=== PATIENT | male | born 1950 | race Caucasian/White ===

== ENCOUNTER → 2016-11-18 | Outpatient (CLI) | payer MEDICARE ==
[2016-11-18 10:15] LABS: ALT 39 U/L (21-72); AST 25 U/L (17-59); Alkaline Phosphatase 67 U/L (38-126); Anion Gap 9 mmol/L; Blood Urea Nitrogen 13 mg/dL (9-20); Calcium 9.1 mg/dL (8.4-10.2); Carbon Dioxide 30 mmol/L (22-30); Chloride 103 mmol/L (98-107); Cholesterol 167 mg/dL (<200); Glucose 107 mg/dL (74-99); HDL Cholesterol 51 mg/dL (40-60); Non-African American GFR(MDRD) >60 (>60 ml/min/1.73 sqM); Potassium 4.3 mmol/L (3.5-5.1); Sodium 142 mmol/L (137-145); Total Bilirubin 1.7 mg/dL (0.2-1.3); Triglycerides 101 mg/dL (<150)
[2016-11-18 10:16] LABS: Basophils % (A) 0 %; CHCM 33.8; Eosinophils # (A) 0.1 k/uL (0-0.7); Eosinophils % (A) 1 %; HCT 41.8 % (39.0-53.0); HDW 2.48; HGB 13.7 gm/dL (13.0-17.5); Luc # (Auto) 0.14; Luc % (Auto) 2; Lymphocytes % (A) 16 %; MCHC 32.7 g/dL (31.0-37.0); Mean Platelet Volume 6.8; Monocytes # (A) 0.3 k/uL (0-1.0); Monocytes % (A) 5 %; Neutrophils # (A) 4.8 k/uL (1.3-7.7); Neutrophils % (A) 76 %; RBC 4.14 m/uL (4.30-5.90); RDW 12.9 % (11.5-15.5); WBC 6.3 k/uL (3.8-10.6); WBC (Perox) 6.38
== END | disposition home or self-care (01) ==
LOC: LABWHC1 09:35
PROVIDERS: ATTEND Internal Medicine
DX: E78.5 Hyperlipidemia, unspecified (principal); I10 Essential (primary) hypertension
CPT/HCPCS: 36415; 80053; 80061; 84439; 84443; 85025

== ENCOUNTER → 2018-02-14 | Outpatient (CLI) | payer MEDICARE ==
[2018-02-14 07:34] LABS: Basophils % (A) 0 %; Eosinophils # (A) 0.2 k/uL (0-0.7); Eosinophils % (A) 4 %; HCT 39.6 % (39.0-53.0); HGB 13.2 gm/dL (13.0-17.5); Lymphocytes # (A) 0.9 k/uL (1.0-4.8); Lymphocytes % (A) 25 %; MCH 32.3 pg (25.0-35.0); MCHC 33.3 g/dL (31.0-37.0); Mean Platelet Volume 7.3; Monocytes # (A) 0.3 k/uL (0-1.0); Monocytes % (A) 8 %; Neutrophils # (A) 2.2 k/uL (1.3-7.7); Neutrophils % (A) 60 %; Platelet Count 172 k/uL (150-450); RBC 4.08 m/uL (4.30-5.90); RDW 12.6 % (11.5-15.5); WBC 3.6 k/uL (3.8-10.6)
[2018-02-14 08:00] LABS: ALT 25 U/L (21-72); AST 27 U/L (17-59); Albumin 3.8 g/dL (3.5-5.0); Alkaline Phosphatase 77 U/L (38-126); Anion Gap 9 mmol/L; Blood Urea Nitrogen 18 mg/dL (9-20); Calcium 8.9 mg/dL (8.4-10.2); Carbon Dioxide 24 mmol/L (22-30); Chloride 106 mmol/L (98-107); Cholesterol 153 mg/dL (<200); Glucose 99 mg/dL (74-99); HDL Cholesterol 43 mg/dL (40-60); LDL Cholesterol,Calculated 93 mg/dL (0-99); Potassium 4.2 mmol/L (3.5-5.1); Sodium 139 mmol/L (137-145); Total Bilirubin 1.5 mg/dL (0.2-1.3); Total Protein 6.4 g/dL (6.3-8.2); Triglycerides 86 mg/dL (<150)
[2018-02-14 08:14] LABS: T4, Free (Free Thyroxine) 0.73 ng/dL (0.78-2.19)
== END ==
LOC: LABWHC1 06:54
PROVIDERS: ATTEND Internal Medicine
DX: E78.5 Hyperlipidemia, unspecified (principal); I10 Essential (primary) hypertension
CPT/HCPCS: 36415; 80053; 80061; 84439; 84443; 85025

== ENCOUNTER → 2019-02-20 | Outpatient (CLI) | payer MEDICARE ==
[2019-02-20 09:52] LABS: Basophils % (A) 0 %; Eosinophils # (A) 0.1 k/uL (0-0.7); Eosinophils % (A) 3 %; HCT 45.7 % (39.0-53.0); HGB 14.8 gm/dL (13.0-17.5); Lymphocytes # (A) 0.9 k/uL (1.0-4.8); Lymphocytes % (A) 19 %; MCH 33.2 pg (25.0-35.0); MCHC 32.4 g/dL (31.0-37.0); MCV 102.4 fL (80.0-100.0); Macrocytosis Slight; Mean Platelet Volume 6.6; Monocytes # (A) 0.3 k/uL (0-1.0); Monocytes % (A) 6 %; Neutrophils # (A) 3.2 k/uL (1.3-7.7); Neutrophils % (A) 69 %; Platelet Count 181 k/uL (150-450); RBC 4.46 m/uL (4.30-5.90); RDW 12.6 % (11.5-15.5); WBC 4.6 k/uL (3.8-10.6)
[2019-02-20 19:37] LABS: Albumin 4.5 g/dL (3.80-4.90); Albumin/Globulin Ratio 2.37 (1.60-3.17); Anion Gap 6.1 mmol/L (4.00-12.00); Calcium 9.5 mg/dL (8.7-10.3); Carbon Dioxide 27.9 mmol/L (21.6-31.8); Globulin 1.9 g/dL (1.6-3.3); LDL Cholesterol,Calculated 113.6 mg/dL (0.0-131.0); Potassium 5.3 mmol/L (3.5-5.5); Total Bilirubin 1.3 mg/dL (0.3-1.2); Total Protein 6.4 g/dL (6.2-8.2); VLDL Calculation 14.4 mg/dL (5.00-40.00)
== END | disposition home or self-care (01) ==
LOC: LABWHC1 08:21
PROVIDERS: ATTEND Internal Medicine
DX: Z00.00 Encounter for general adult medical examination without abnormal findings (principal); I10 Essential (primary) hypertension; E78.5 Hyperlipidemia, unspecified
CPT/HCPCS: 36415; 80053; 80061; 84439; 84443; 85025

== ENCOUNTER → 2021-07-26 | Outpatient (CLI) | payer MEDICARE ==
[2021-07-26 16:45] LABS: Basophils # (A) 0.03 X 10*3/uL (0.00-0.10); Basophils % (A) 0.7 %; Eosinophils # (A) 0.12 X 10*3/uL (0.04-0.35); Eosinophils % (A) 2.7 %; HCT 43.2 % (39.6-50.0); HGB 14.2 g/dL (13.0-17.0); Lymphocytes # (A) 0.94 X 10*3/uL (0.90-5.00); Lymphocytes % (A) 21.4 %; MCH 32.6 pg (27.0-32.0); MCHC 32.9 g/dL (32.0-37.0); MCV 99.1 fL (80.0-97.0); Mean Platelet Volume 9.7 fL (9.5-12.2); Monocytes # (A) 0.39 X 10*3/uL (0.20-1.00); Monocytes % (A) 8.9 %; Neutrophils # (A) 2.89 X 10*3/uL (1.80-7.70); Neutrophils % (A) 65.8 %; Platelet Count 188 X 10*3/uL (140-440); RBC 4.36 X 10*6/uL (4.40-5.60); RDW 12.4 % (11.5-14.5); WBC 4.39 X 10*3/uL (4.50-10.00)
[2021-07-26 16:53] LABS: Albumin 4.3 g/dL (3.8-4.9); Albumin/Globulin Ratio 1.95 (1.60-3.17); Anion Gap 11.6 mmol/L (4.00-12.00); BUN/Creat Ratio 14.77 Ratio (12.00-20.00); Blood Urea Nitrogen 12.3 mg/dL (9.0-27.0); Calcium 9.4 mg/dL (8.7-10.3); Carbon Dioxide 27.3 mmol/L (21.6-31.8); Chol/HDL Ratio 3.73 Ratio; Globulin 2.2 g/dL (1.6-3.3); HDL Cholesterol 46.7 mg/dL (40.00-60.00); LDL Cholesterol,Calculated 103.5 mg/dL (0.0-131.0); Non-African American GFR(CKD) 87.2 (60.0-200.0); Potassium 4.5 mmol/L (3.5-5.5); Total Bilirubin 1.3 mg/dL (0.30-1.20); Total Protein 6.4 g/dL (6.2-8.2); VLDL Calculation 23.8 mg/dL (5.00-40.00)
[2021-07-28 05:10] LABS: Prostate Specific Antigen 1.5 ng/mL (0.00-6.50); T4, Free (Free Thyroxine) 0.92 ng/dL (0.800-1.800)
== END | disposition home or self-care (01) ==
LOC: LABWHC1 08:07
PROVIDERS: ATTEND Internal Medicine
DX: I10 Essential (primary) hypertension (principal); E78.5 Hyperlipidemia, unspecified; E55.9 Vitamin D deficiency, unspecified; D51.9 Vitamin B12 deficiency anemia, unspecified
CPT/HCPCS: 36415; 80053; 80061; 82306; 82607; 84153; 84439; 84443; 85025

== ENCOUNTER 2023-06-06 12:14 | Inpatient (IN) | payer MEDICARE ==
[2023-06-06] MEDS ORDERED: SODIUM CHLORIDE 0.9% 1,000 ML IV STA (12:50)
--- NOTE | 2023-06-06 12:53 | ED ---
General Adult HPI - General Chief complaint: Syncope Stated complaint: syncope Time Seen by Provider: 06/06/23 12:17 Source: patient, family, RN notes reviewed Mode of arrival: EMS Limitations: altered mental status, physical limitation - History of Present Illness Initial comments: Patient is a pleasant 73-year-old male presenting to the emergency department for possible syncopal episode. Patient is extremely poor historian and history is obtained from family. It is unclear patient has syncopal episode but he did reportedly fell down. Patient reportedly had low heart rate and low blood pressure. Patient states he feels fine and has no complaints. It is unclear whether or not patient struck his head. Family states they believe he did strik e his head. No history of atrial fibrillation. Patient does have chronic diarrhea and has been taking Imodium, approximate 6 tabs daily. - Related Data Home Medications Medication Instructions Recorded Confirmed Aspirin 81 mg PO DAILY 05/07/15 06/06/23 Donepezil [Aricept] 10 mg PO HS 05/07/15 06/06/23 Simvastatin [Zocor] 20 mg PO DAILY 05/07/15 06/06/23 Citalopram Hydrobromide [CeleXA] 40 mg PO DAILY 06/06/23 06/06/23 Cyanocobalamin (Vitamin B-12) 1,000 mcg PO DAILY 06/06/23 06/06/23 [Vitamin B-12] Levothyroxine Sodium [Synthroid] 25 mcg PO DAILY 06/06/23 06/06/23 Loperamide [Imodium] 4 mg PO QID PRN 06/06/23 06/06/23 Losartan Potassium 100 mg PO DAILY 06/06/23 06/06/23 Memantine [Namenda] 5 mg PO BID 06/06/23 06/06/23 Allergies Allergy/AdvReac Type Severity Reaction Status Date / Time No Known Allergies Allergy Verified 06/06/23 14:57 Review of Systems ROS Statement: Those systems with pertinent positive or pertinent negative responses have been documented in the HPI. ROS Other: All systems not noted in ROS Statement are negative. Constitutional: Denies: fever Eyes: Denies: eye pain ENT: Denies: ear pain Respiratory: Denies: cough Cardiovascular: Denies: chest pain Endocrine: Denies: fatigue Gastrointestinal: Reports: as per HPI, diarrhea. Denies: vomiting Musculoskeletal: Denies: back pain Past Medical History Past Medical History: Hyperlipidemia, Hypertension Additional Past Medical History / Comment(s): HX FORGETFULNESS-ON ARICEPT, RESTLESS LEG SYNDROME, HAD SLEEP STUDY RECENTLY-IN PROCESS OF GETTING C-PAP, LOOSE STOOL @ TIMES- SOMETIMES HARD TO CONTROL, ALSO HAVING SOME BELCHING, History of Any Multi-Drug Resistant Organisms: None Reported Past Surgical History: Bowel Resection, Cholecystectomy, Joint Replacement, Orthopedic Surgery Additional Past Surgical History / Comment(s): COLON RESECTION FOR ADENOMA, COLONOSCOPY, RT HIP REPLACEMENT, ARTHROSCOPIC GERMAN. KNEES, PIN IN LT SHOULDER @ AGE 16 Past Anesthesia/Blood Transfusion Reactions: No Reported Reaction Past Psychological History: No Psychological Hx Reported Smoking Status: Never smoker Past Alcohol Use History: Occasional Past Drug Use History: None Reported - Past Family History Mother Family Medical History: Cancer, Diabetes Mellitus Additional Family Medical History / Comment(s): STOMACH CA Father Family Medical History: Skin Disorder Additional Family Medical History / Comment(s): SEVERE PSORIASIS General Exam Limitations: altered mental status, physical limitation General appearance: alert, in no apparent distress Head exam: Present: atraumatic Eye exam: Present: normal appearance, PERRL Neck exam: Present: normal inspection. Absent: tenderness Respiratory exam: Present: normal lung sounds bilaterally Cardiovascular Exam: Present: bradycardia, irregular rhythm Expanded Peripheral pulses: 2+: Radial (R), Radial (L), Posterior Tibialis (R), Posterior Tibialis (L) GI/Abdominal exam: Present: soft. Absent: tenderness Extremities exam: Present: normal inspection. Absent: pedal edema, calf tenderness Neurological exam: Present: alert. Absent: motor sensory deficit Expanded Motor strength exam: RUE: 5, LUE: 5, RLE: 5, LLE: 5 Eye Response: (4) open spontaneously Motor Response: (6) obeys commands Verbal Response: (4) confused conversation Psychiatric exam: Present: flat affect Skin exam: Present: normal color Course Vital Signs 06/06/23 06/06/23 06/06/23 12:22 12:33 13:14 Temperature 97.0 F L Pulse Rate 47 L 45 L Pulse Rate [ 44 L Leadership Development Manager ] Respiratory 18 17 Rate Blood Pressure 84/48 92/56 O2 Sat by Pulse 100 100 Oximetry EKG Findings - EKG Results: EKG: interpreted by ERMD, normal axis, normal QRS, normal ST/T EKG shows: bradycardia, atrial fibrillation Medical Decision Making - Medical Decision Making Was pt. sent in by a medical professional or institution (ILENE Llanos, RETORT PRESS OPERATOR, urgent care, hospital, or skilled nursing...) When possible be specific @ -Patient was sent in by adult foster care facility Did you speak to anyone other than the patient for history (EMS, parent, family, police, friend...)? What history was obtained from this source @ - is present and provides majority of history is patient is a poor historian Did you review nursing and triage notes (agree or disagree)? Why? @ -I reviewed and agree with nursing and triage notes Were old charts reviewed (outside hosp., previous admission, EMS record, old EKG, old radiological studies, urgent care reports/EKG's, skilled nursing records)? Report findings @ -No old charts were reviewed Differential Diagnosis (chest pain, altered mental status, abdominal pain women, abdominal pain men, vaginal bleeding, weakness, fever, dyspnea, syncope, headache, dizziness, GI bleed, back pain, seizure, CVA, palpatations, mental health, musculoskeletal)? @ -Differential Syncope: Valvular disease, hypertrophic cardiomyopathy, pulmonary embolism, tamponade, tachycardia, bradycardia, AL, hypovolemia, hemorrhage, dissection, anemia, intracranial hemorrhage, seizure, hypoglycemia, carbon monoxide poisoning, this is not meant to be an all-inclusive list. EKG interpreted by me (3pts min.). @ -As above X-rays interpreted by me (1pt min.). @ -Chest x-ray shows no acute process CT interpreted by me (1pt min.). @ -Report reviewed U/S interpreted by me (1pt. min.). @ -None done What testing was considered but not performed or refused? (CT, X-rays, U/S, labs)? Why? @ -None What meds were considered but not given or refused? Why? @ -None Did you discuss the management of the patient with other professionals (professionals i.e. ILENE Llanos, RETORT PRESS OPERATOR, lab, RT, psych nurse, social science instructor, pr internship, teacher, navy senior officer, clinical case manager)? Give summary @ -Case was discussed with Dr. Sherman who will admit For hospital call. Case also discussed with Dr. Sam with cardiology, who will consult. Was smoking cessation discussed for >3mins.? @ -No Was critical care preformed (if so, how long)? @ -No Were there social determinants of health that impacted care today? How? (Homelessness, low income, unemployed, alcoholism, drug addiction, transportation, low edu. Level, literacy, decrease access to med. care, long-term, rehab)? @ -No Was there de-escalation of care discussed even if they declined (Discuss DNR or withdrawal of care, Hospice)? DNR status @ -No What co-morbidities impacted this encounter? (DM, HTN, Smoking, COPD, CAD, Cancer, CVA, ARF, Chemo, Hep., AIDS, mental health diagnosis, sleep apnea, morbid obesity)? @ -None Was patient admitted / discharged? Hospital course, mention meds given and route, prescriptions, significant lab abnormalities, going to OR and other pertinent info. @ -Patient reevaluated and resting comfortably in bed. Heart rate 55. Stable blood pressure. Patient and family updated on results and plan. Patient will be admitted with cardiac consult Undiagnosed new problem with uncertain prognosis? @ -No Drug Therapy requiring intensive monitoring for toxicity (Heparin, Nitro, Insulin, Cardizem)? @ -No Were any procedures done? @ -No Diagnosis/symptom? @ - Syncope, bradycardia, A. fib Acute, or Chronic, or Acute on Chronic? @ -Acute, acute, acute Uncomplicated (without systemic symptoms) or Complicated (systemic symptoms)? @ -default Side effects of treatment? @ -No Exacerbation, Progression, or Severe Exacerbation? @ -No Poses a threat to life or bodily function? How? (Chest pain, USA, AL, pneumonia, PE, COPD, DKA, ARF, appy, cholecystitis, CVA, Diverticulitis, Homicidal, Suicidal, threat to staff... and all critical care pts) @ -No - Lab Data Result diagrams: 06/06/23 13:17 06/06/23 13:17 Lab Results 06/06/23 06/06/23 06/06/23 Range/Units 13:17 13:17 13:17 WBC 4.8 (3.8-10.6) k/uL RBC 3.43 L (4.30-5.90) m/uL Hgb 11.8 L (13.0-17.5) gm/dL Hct 34.3 L (39.0-53.0) % MCV 100.0 (80.0-100.0) fL MCH 34.5 (25.0-35.0) pg MCHC 34.5 (31.0-37.0) g/dL RDW 12.2 (11.5-15.5) % Plt Count 128 L (150-450) k/uL MPV 7.8 Neutrophils % 65 % Lymphocytes % 24 % Monocytes % 6 % Eosinophils % 2 % Basophils % 0 % Neutrophils # 3.1 (1.3-7.7) k/uL Lymphocytes # 1.2 (1.0-4.8) k/uL Monocytes # 0.3 (0-1.0) k/uL Eosinophils # 0.1 (0-0.7) k/uL Basophils # 0.0 (0-0.2) k/uL PT 10.6 (9.0-12.0) sec INR 1.0 (<1.2) APTT 24.1 (22.0-30.0) sec Sodium 137 (137-145) mmol/L Potassium 3.7 (3.5-5.1) mmol/L Chloride 107 (98-107) mmol/L Carbon Dioxide 25 (22-30) mmol/L Anion Gap 5 mmol/L BUN 22 H (9-20) mg/dL Creatinine 0.90 (0.66-1.25) mg/dL Est GFR (CKD-EPI)AfAm >90 (>60 ml/min/1.73 sqM) Est GFR (CKD-EPI)NonAf 83 (>60 ml/min/1.73 sqM) Glucose 67 L (74-99) mg/dL Calcium 7.6 L (8.4-10.2) mg/dL Magnesium 2.1 (1.6-2.3) mg/dL Total Bilirubin 1.0 (0.2-1.3) mg/dL AST 20 (17-59) U/L ALT 17 (4-49) U/L Alkaline Phosphatase 62 (38-126) U/L Troponin I (0.000-0.034) ng/mL Total Protein 5.2 L (6.3-8.2) g/dL Albumin 3.0 L (3.5-5.0) g/dL TSH 1.520 (0.465-4.680) mIU/L Free T4 0.96 (0.78-2.19) ng/dL 06/06/23 Range/Units 13:17 WBC (3.8-10.6) k/uL RBC (4.30-5.90) m/uL Hgb (13.0-17.5) gm/dL Hct (39.0-53.0) % MCV (80.0-100.0) fL MCH (25.0-35.0) pg MCHC (31.0-37.0) g/dL RDW (11.5-15.5) % Plt Count (150-450) k/uL MPV Neutrophils % % Lymphocytes % % Monocytes % % Eosinophils % % Basophils % % Neutrophils # (1.3-7.7) k/uL Lymphocytes # (1.0-4.8) k/uL Monocytes # (0-1.0) k/uL Eosinophils # (0-0.7) k/uL Basophils # (0-0.2) k/uL PT (9.0-12.0) sec INR (<1.2) APTT (22.0-30.0) sec Sodium (137-145) mmol/L Potassium (3.5-5.1) mmol/L Chloride (98-107) mmol/L Carbon Dioxide (22-30) mmol/L Anion Gap mmol/L BUN (9-20) mg/dL Creatinine (0.66-1.25) mg/dL Est GFR (CKD-EPI)AfAm (>60 ml/min/1.73 sqM) Est GFR (CKD-EPI)NonAf (>60 ml/min/1.73 sqM) Glucose (74-99) mg/dL Calcium (8.4-10.2) mg/dL Magnesium (1.6-2.3) mg/dL Total Bilirubin (0.2-1.3) mg/dL AST (17-59) U/L ALT (4-49) U/L Alkaline Phosphatase (38-126) U/L Troponin I <0.012 (0.000-0.034) ng/mL Total Protein (6.3-8.2) g/dL Albumin (3.5-5.0) g/dL TSH (0.465-4.680) mIU/L Free T4 (0.78-2.19) ng/dL Disposition Clinical Impression: Syncope Disposition: ADMITTED IP TO THIS HOSP Is patient prescribed a controlled substance at d/c from ED?: No Referrals: None,Stated [REFERRING] - 1-2 days Time of Disposition: 15:15
[2023-06-06 13:32] LABS: Basophils % (A) 0 %; Eosinophils # (A) 0.1 k/uL (0-0.7); Eosinophils % (A) 2 %; HCT 34.3 % (39.0-53.0); HGB 11.8 gm/dL (13.0-17.5); Lymphocytes # (A) 1.2 k/uL (1.0-4.8); Lymphocytes % (A) 24 %; MCH 34.5 pg (25.0-35.0); MCHC 34.5 g/dL (31.0-37.0); Mean Platelet Volume 7.8; Monocytes # (A) 0.3 k/uL (0-1.0); Monocytes % (A) 6 %; Neutrophils # (A) 3.1 k/uL (1.3-7.7); Neutrophils % (A) 65 %; Platelet Count 128 k/uL (150-450); RBC 3.43 m/uL (4.30-5.90); RDW 12.2 % (11.5-15.5); WBC 4.8 k/uL (3.8-10.6)
[2023-06-06 13:48] LABS: Prothrombin Time 10.6 sec (9.0-12.0)
[2023-06-06 13:49] LABS: Partial Thromboplastin Time 24.1 sec (22.0-30.0)
[2023-06-06 13:50] LABS: ALT 17 U/L (4-49); AST 20 U/L (17-59); African American GFR (CKD) >90 (>60 ml/min/1.73 sqM); Alkaline Phosphatase 62 U/L (38-126); Anion Gap 5 mmol/L; Blood Urea Nitrogen 22 mg/dL (9-20); Calcium 7.6 mg/dL (8.4-10.2); Carbon Dioxide 25 mmol/L (22-30); Chloride 107 mmol/L (98-107); Glucose 67 mg/dL (74-99); Magnesium 2.1 mg/dL (1.6-2.3); Non-African American GFR(CKD) 83 (>60 ml/min/1.73 sqM); Potassium 3.7 mmol/L (3.5-5.1); Sodium 137 mmol/L (137-145); Total Protein 5.2 g/dL (6.3-8.2)
--- NOTE | 2023-06-06 14:00 | XR ---
EXAMINATION TYPE: XR chest 1V portable DATE OF EXAM: 06/06/2023 1:55 PM COMPARISON: Chest radiographs from 02/01/2011 TECHNIQUE: XR chest 1V portable Portable AP radiograph of the chest. CLINICAL INDICATION:Male, 73 years old with history of Fall; FINDINGS: Lungs/Pleura: There is no evidence of pleural effusion, focal consolidation, or pneumothorax. Pulmonary vascularity: Unremarkable. Heart/mediastinum: Cardiomediastinal silhouette is unremarkable. Atherosclerotic calcifications are seen in the aorta. Musculoskeletal: No acute osseous pathology. Bilateral shoulder arthropathy with redemonstration of s crew in the region of the left shoulder joint. Degenerative changes of the thoracic spine. IMPRESSION: No acute cardiopulmonary disease/process.
--- NOTE | 2023-06-06 14:03 | CT ---
EXAMINATION TYPE: CT brain wo con CT DLP: 1203.4 mGycm, Automated exposure control for dose reduction was used. DATE OF EXAM: 06/06/2023 1:58 PM COMPARISON: MRI brain 07/16/2012 CLINICAL INDICATION:Male, 73 years old with history of syncope, Syncope, Alzheimer's TECHNIQUE: Brain: Multiple axial CT images of the brain were obtained without IV contrast. Coronal and sagittal reformats reviewed. FINDINGS: Brain: Extra-axial spaces: No abnormal extra-axial fluid collections. Ventricular system: Within normal limits Cerebral parenchyma: Cerebral atrophy. No acute intraparenchymal hemorrhage or mass effect. The martinez -white junction is well differentiated. Scattered hypoattenuating areas are seen within the white mat ter. Cerebellum: Unremarkable. Mass effect: No evidence of midline shift. Intracranial vasculature: Atherosclerotic calcifications of the intracranial vessels. Soft tissues: Normal. Calvarium/osseous structures: No depressed skull fracture. Paranasal sinuses and mastoid air cells: Clear Visualized orbits: Orbital contents are intact. IMPRESSION: 1. No acute intracranial process. 2. Nonspecific white matter changes, likely secondary to chronic small vessel ischemic disease.
[2023-06-06 14:07] LABS: T4, Free (Free Thyroxine) 0.96 ng/dL (0.78-2.19)
[2023-06-06] MEDS ORDERED: NALOXONE 0.4 MG/ML 1 ML VIAL IV PRN (15:17)
--- NOTE | 2023-06-06 15:31 | P.HPIM ---
History of Present Illness H&P Date: 06/06/23 History of Presenting Illness: Patient is a very pleasant 73-year-old male with a past medical history of advanced Alzheimer's dementia, hypertension, hyperlipidemia, and chronic diarrhea on daily Imodium. He presented to the emergency department today status post reported concerns of syncopal episode. Patient has advanced Alzheimer's dementia and currently at baseline mentation alert to person only. Per patient's at bedside, patient was at [facility] where he attends day camp twice weekly. She reports she was notified that her started shaking/trembling and became very unsteady and fell to the ground with concerns that he hit the left side of his head followed by a loss of consciousness reportedly lasting approximately 90 seconds and EMS was called. It is unclear if patient lost consciousness prior to fall or after fall and was sent to the emergency department for evaluation. Patient's reports until being notified of her 's loss of consciousness/syncopal episode, he has been at his baseline normal with no recent illnesses or exposure to known ill contacts. She states he follows outpatient with his primary care doctor, Dr. Whitaekr and last seen him in the office yesterday for a well check visit. She reports that her does have chronic diarrhea and takes approximately 5-6 tablets of Imodium daily, but reports this has been ongoing and unchanged. She denies any episodes of hematochezia or melena. She denies any recent medication changes, history of coronary artery disease, previous syncopal episodes, history of seizures or known cardiac arrhythmias. Patient underwent full evaluation in the emergency department. Upon arrival patient was found to be hypotensive and bradycardic with blood pressure 84/48 and heart rate 44. EKG was completed showing atrial fibrillation with a slowed ventricular response at 44 bpm upon personal review and interpretation. CT brain also completed in radiology report reviewed stating nonspecific white matter changes likely secondary to chronic small vessel ischemic disease but negative for acute intracranial process. Chest x-ray completed and upon review lungs appear clear with radiology report stating negative for acute cardiopulmonary process. Labs completed and reviewed. CBC showing normocytic anemia with hemoglobin of 11.8 and thrombocytopenia with platelet count of 128. Coagulation profile normal findings. BMP showing mild prerenal azotemia with BUN of 22 and hypoglycemia with glucose of 67. Magnesium normal findings at 2.1. Corrected calcium is 8.4. Liver profile unremarkable with the exception of low protein of 5.2 and hypoalbuminemia with albumin of 3.0. TSH normal findings at 1.5-0 with free T4 of 0.96. Discussed presenting complaint, patient's history, laboratory analysis, and imaging results in detail with the ED physician. Patient admitted under our services with consultation to neurology and cardiology. Review of systems: Pertinent positives and negatives as discussed in HPI, a complete review of systems was unable to be performed secondary to advanced Alzheimer's dementia. Information obtained from ED staff and patient's at bedside. Physical exam: Vital signs reviewed and stable. General: Nontoxic, no distress and appears stated age. Derm: Skin warm and dry, normal coloration for ethnicity. Head: Atraumatic, normocephalic and symmetric. Very hard of hearing. Eyes: EOMs intact, no lid lag, and anicteric sclera Mouth: no lip lesions, mucus membranes moist Cardiovascular: Bradycardic rate, regular rhythm with systolic murmur, positive posterior tibial pulses bilaterally, and cap refill < 2 seconds. Lungs: Respirations even, regular, and unlabored on room air. Lungs CTA bilaterally, no rhonchi, no rales, no wheezing, and no accessory muscle usage. Abdominal: soft, nontender to palpation, no guarding, no appreciable organomegaly Ext: ROM intact. No gross muscle atrophy, no edema, no contractures Neuro: Speech clear, face symmetrical and CN II-XII grossly intact with no noted focal neuro deficits Psych: Alert and oriented to person only. Patient confused to place, time, and situation at baseline. Appropriate and pleasant affect. Assessment and Plan of Care: Patient is a 73-year-old male with a past medical history of advanced Alzheimer's dementia, hypertension, hyperlipidemia, and chronic diarrhea on daily Imodium. Data review: -Upon arrival patient was found to be hypotensive and bradycardic with blood pressure 84/48 and heart rate 44. -EKG was completed showing atrial fibrillation with a slowed ventricular response at 44 bpm upon personal review and interpretation. -CT brain also completed in radiology report reviewed stating nonspecific white matter changes likely secondary to chronic small vessel ischemic disease but negative for acute intracranial process. -Chest x-ray completed and upon review lungs appear clear with radiology report stating negative for acute cardiopulmonary process. -Labs completed and reviewed. CBC showing normocytic anemia with hemoglobin of 11.8 and thrombocytopenia with platelet count of 128. Coagulation profile normal findings. BMP showing mild prerenal azotemia with BUN of 22 and hypoglycemia with glucose of 67. Magnesium normal findings at 2.1. Corrected calcium is 8.4. Liver profile unremarkable with the exception of low protein of 5.2 and hypoalbuminemia with albumin of 3.0. TSH normal findings at 1.5-0 with free T4 of 0.96. -Discussed presenting complaint, patient's history, laboratory analysis, and imaging results in detail with the ED physician. -Patient admitted under our services to general medical unit with telemetry with consultation to neurology and cardiology. Syncopal episode, unclear etiology. New-onset atrial fibrillation with a slowed ventricular response Hypotension and bradycardia Hypoglycemia -[id number] score 3, HAS-BLED Score 1. -Cardiology consulted. Discussed with poolroom table attendant, will hold off on starting anticoagulation at this time due to unclear etiology of fall and concerns of possibility of patient hitting head and loss of consciousness prior to arrival. -Telemetry monitoring. -Point of care glucose checks every 4 hours with glycemic protocol in place. -Consult placed to cardiology -Consult placed to neurology -Neuro checks every 4 hours -Fall precautions -Patient to continue with cardiac medication regimen consisting of aspirin 81 mg daily, atorvastatin 10 mg daily, and losartan 100 mg daily. Advanced Alzheimer's dementia Patient to be provided with safe and supportive care with redirection and/or reorientation and assistance as needed. Fall precautions Patient to continue daily medication regimen with Celexa 40 mg daily, Aricept 10 mg nightly, and Namenda 5 mg twice daily. Hypothyroidism Patient to continue daily medication regimen with levothyroxine 25 g daily. CODE STATUS: Full code DVT prophylaxis: Lovenox Discussed with: Patient, patient's , ED physician, RN, and poolroom table attendant Anticipated discharge date: Clinical course to determine Anticipated discharge place: Home Patient was seen independently by Nurse Practitioner. This document was prepared using [employer] dictation software. Please allow for errors in camera prototyping engineer while rare they do occur. I reviewed the documentation as provided by the KAT above, who is the original author of this note. I agree with the documented assessment and plan, with the following changes: none Past Medical History Past Medical History: Hyperlipidemia, Hypertension Additional Past Medical History / Comment(s): HX FORGETFULNESS-ON ARICEPT, RESTLESS LEG SYNDROME, HAD SLEEP STUDY RECENTLY-IN PROCESS OF GETTING C-PAP, LOOSE STOOL @ TIMES- SOMETIMES HARD TO CONTROL, ALSO HAVING SOME BELCHING, History of Any Multi-Drug Resistant Organisms: None Reported Past Surgical History: Bowel Resection, Cholecystectomy, Joint Replacement, Orthopedic Surgery Additional Past Surgical History / Comment(s): COLON RESECTION FOR ADENOMA, COLONOSCOPY, RT HIP REPLACEMENT, ARTHROSCOPIC GERMAN. KNEES, PIN IN LT SHOULDER @ AGE 16 Past Anesthesia/Blood Transfusion Reactions: No Reported Reaction Past Psychological History: No Psychological Hx Reported Smoking Status: Never smoker Past Alcohol Use History: Occasional Past Drug Use History: None Reported - Past Family History Mother Family Medical History: Cancer, Diabetes Mellitus Additional Family Medical History / Comment(s): STOMACH CA Father Family Medical History: Skin Disorder Additional Family Medical History / Comment(s): SEVERE PSORIASIS Medications and Allergies Home Medications Medication Instructions Recorded Confirmed Type Aspirin 81 mg PO DAILY 05/07/15 06/06/23 History Donepezil [Aricept] 10 mg PO HS 05/07/15 06/06/23 History Simvastatin [Zocor] 20 mg PO DAILY 05/07/15 06/06/23 History Citalopram Hydrobromide [CeleXA] 40 mg PO DAILY 06/06/23 06/06/23 History Cyanocobalamin (Vitamin B-12) 1,000 mcg PO DAILY 06/06/23 06/06/23 History [Vitamin B-12] Levothyroxine Sodium [Synthroid] 25 mcg PO DAILY 06/06/23 06/06/23 History Loperamide [Imodium] 4 mg PO QID PRN 06/06/23 06/06/23 History Losartan Potassium 100 mg PO DAILY 06/06/23 06/06/23 History Memantine [Namenda] 5 mg PO BID 06/06/23 06/06/23 History Allergies Allergy/AdvReac Type Severity Reaction Status Date / Time No Known Allergies Allergy Verified 06/06/23 14:57 Physical Exam Osteopathic Statement: *. No significant issues noted on an osteopathic structural exam other than those noted in the History and Physical/Consult. Vitals: Vital Signs Temp Pulse Pulse Resp BP Pulse Ox 06/06/23 13:14 45 L 17 92/56 100 06/06/23 12:33 44 L 06/06/23 12:22 97.0 F L 47 L 18 84/48 100 Intake and Output 06/06/23 06/06/23 06/06/23 06:59 14:59 22:59 Other: Weight 81.647 kg Results CBC & Chem 7: 06/07/23 04:02 06/07/23 04:02 Labs: Abnormal Lab Results - Last 24 Hours (Table) 06/06/23 06/06/23 Range/Units 13:17 13:17 RBC 3.43 L (4.30-5.90) m/uL Hgb 11.8 L (13.0-17.5) gm/dL Hct 34.3 L (39.0-53.0) % Plt Count 128 L (150-450) k/uL BUN 22 H (9-20) mg/dL Glucose 67 L (74-99) mg/dL Calcium 7.6 L (8.4-10.2) mg/dL Total Protein 5.2 L (6.3-8.2) g/dL Albumin 3.0 L (3.5-5.0) g/dL
[2023-06-06] MEDS ORDERED: DEXTROSE 50% SYRINGE 50 ML IVP PRN ×2 (15:32)
[2023-06-06 15:44] LABS: Glucose,Whole Blood 80 mg/dL (70-110)
[2023-06-06] MEDS ORDERED: OLANZapine 7.5 MG TAB PO ONE (18:55)
[2023-06-06 19:56] LABS: Glucose,Whole Blood 129 mg/dL (70-110)
[2023-06-06] MEDS: ENOXAPARIN 40 MG/0.4 ML SYRINGE SQ SCH (19:56)
[2023-06-06] MEDS: MEMANTINE 5 MG TAB PO SCH (20:53)
[2023-06-06] MEDS: DONEPEZIL 10 MG TAB PO SCH (20:53)
[2023-06-06 23:33] LABS: Glucose,Whole Blood 98 mg/dL (70-110)
[2023-06-07 03:17] LABS: Glucose,Whole Blood 84 mg/dL (70-110)
[2023-06-07 04:49] LABS: Basophils % (A) 0 %; Eosinophils # (A) 0.1 k/uL (0-0.7); Eosinophils % (A) 3 %; HCT 36.2 % (39.0-53.0); HGB 12.5 gm/dL (13.0-17.5); Lymphocytes # (A) 1.6 k/uL (1.0-4.8); Lymphocytes % (A) 32 %; MCH 34.7 pg (25.0-35.0); MCHC 34.5 g/dL (31.0-37.0); MCV 100.6 fL (80.0-100.0); Mean Platelet Volume 7.5; Monocytes # (A) 0.3 k/uL (0-1.0); Monocytes % (A) 6 %; Neutrophils # (A) 2.9 k/uL (1.3-7.7); Neutrophils % (A) 57 %; Platelet Count 123 k/uL (150-450); RDW 12.2 % (11.5-15.5)
[2023-06-07 05:00] LABS: ALT 18 U/L (4-49); AST 26 U/L (17-59); African American GFR (CKD) >90 (>60 ml/min/1.73 sqM); Albumin 3.6 g/dL (3.5-5.0); Alkaline Phosphatase 71 U/L (38-126); Anion Gap 5 mmol/L; Blood Urea Nitrogen 19 mg/dL (9-20); Calcium 8.9 mg/dL (8.4-10.2); Carbon Dioxide 29 mmol/L (22-30); Chloride 103 mmol/L (98-107); Glucose 84 mg/dL (74-99); Non-African American GFR(CKD) 79 (>60 ml/min/1.73 sqM); Potassium 4.3 mmol/L (3.5-5.1); Sodium 137 mmol/L (137-145); Total Bilirubin 1.3 mg/dL (0.2-1.3); Total Protein 6.2 g/dL (6.3-8.2)
[2023-06-07 07:36] LABS: Glucose,Whole Blood 89 mg/dL (70-110)
[2023-06-07] MEDS ORDERED: LOSARTAN 50 MG TAB PO SCH (09:00)
--- NOTE | 2023-06-07 10:02 | P.CRDCN ---
History of Present Illness History of present illness: HISTORY OF PRESENT ILLNESS: This is a 73-year-old male with a past medical history significant for hyperlipidemia, dementia, hypertension, and hypothyroidism. Patient does not follow with a in home baby sitter. We have been asked to see the patient in consultation for atrial fibrillation and syncope. Patient examined at the bedside in the emergency room. Patient is alert and oriented to himself only. There is no family at bedside. Apparently the patient had a syncopal episode while at his adult daycare. The patient currently denies any chest pain or pressure. He denies shortness of breath. Telemetry reveals sinus rhythm with a heart rate in the 50s. EKG performed on arrival revealed atrial fibrillation with a heart rate in the 40s. Patient was also hypotensive with a blood pressure in the 90s. He has not been started on anticoagulation secondary to fall risk. * EKG reveals atrial fibrillation with slow ventricular rate * Chest xray negative for acute process * Laboratory data: WBC 5.0. Hemoglobin for 12.5. Platelet count 123. Sodium 137. Potassium 4.3. BUN 19. Creatinine 0.94. Troponin negative x 3. * Current home cardiac medications include aspirin 81 mg daily, simvastatin 20 mg daily, losartan 100 mg daily REVIEW OF SYSTEMS: At the time of my exam: CONSTITUTIONAL: Denies fever or chills. HEENT: Denies blurred vision, vision changes, or eye pain. Denies hemoptysis CARDIOVASCULAR: Denies chest pain. Denies orthopnea. Denies PND. Denies palpitations RESPIRATORY: Denies shortness of breath. GASTROINTESTINAL: Denies abdominal pain. Denies nausea or vomiting. HEMATOLOGIC: Denies bleeding disorders. GENITOURINARY: Denies any blood in urine. SKIN: Denies pruitis. Denies rash. PHYSICAL EXAM: VITAL SIGNS: Reviewed. GENERAL: Well-developed in no acute distress. HEENT: Head is normocephalic. Pupils are equal, round. Sclerae anicteric. Mucous membranes of the mouth are moist. Neck supple. No JVD or thyromegaly LUNGS: Respirations even and unlabored. Lungs essentially clear to auscultation bilaterally. HEART: Bradycardia. Regular rate and rhythm. S1 and S2 heard. ABDOMEN: Soft. Nondistended. Nontender. EXTREMITIES: Normal range of motion. No clubbing or cyanosis. Peripheral pulses intact. No lower extremity edema NEUROLOGIC: Awake and alert. Oriented x 1. ASSESSMENT: Syncope, etiology unclear New-onset paroxysmal atrial fibrillation with slow ventricular rate, currently maintaining sinus mechanism Sinus bradycardia Hyperlipidemia Hypertension Hypothyroidism Dementia PLAN: Obtain 2D echo to assess cardiac structure and function TSH checked and within normal limits No AV reji blocking agent secondary to bradycardia Patient is not a good candidate for anticoagulation secondary to dementia and fall risk Continue telemetry monitoring to assess the need for pacemaker implantation Further recommendations pending patient's course Nurse practitioner note has been reviewed by physician. Signing provider agrees with the documented findings, assessment, and plan of care. Past Medical History Past Medical History: Hyperlipidemia, Hypertension Additional Past Medical History / Comment(s): HX FORGETFULNESS-ON ARICEPT, RESTL ESS LEG SYNDROME, HAD SLEEP STUDY RECENTLY-IN PROCESS OF GETTING C-PAP, LOOSE STOOL @ TIMES- SOMETIMES HARD TO CONTROL, ALSO HAVING SOME BELCHING, History of Any Multi-Drug Resistant Organisms: None Reported Past Surgical History: Bowel Resection, Cholecystectomy, Joint Replacement, Orthopedic Surgery Additional Past Surgical History / Comment(s): COLON RESECTION FOR ADENOMA, COLONOSCOPY, RT HIP REPLACEMENT, ARTHROSCOPIC GERMAN. KNEES, PIN IN LT SHOULDER @ AGE 16 Past Anesthesia/Blood Transfusion Reactions: No Reported Reaction Past Psychological History: No Psychological Hx Reported Smoking Status: Never smoker Past Alcohol Use History: Occasional Past Drug Use History: None Reported - Past Family History Mother Family Medical History: Cancer, Diabetes Mellitus Additional Family Medical History / Comment(s): STOMACH CA Father Family Medical History: Skin Disorder Additional Family Medical History / Comment(s): SEVERE PSORIASIS Medications and Allergies Home Medications Medication Instructions Recorded Confirmed Type Aspirin 81 mg PO DAILY 05/07/15 06/06/23 History Donepezil [Aricept] 10 mg PO HS 05/07/15 06/06/23 History Simvastatin [Zocor] 20 mg PO DAILY 05/07/15 06/06/23 History Citalopram Hydrobromide [CeleXA] 40 mg PO DAILY 06/06/23 06/06/23 History Cyanocobalamin (Vitamin B-12) 1,000 mcg PO DAILY 06/06/23 06/06/23 History [Vitamin B-12] Levothyroxine Sodium [Synthroid] 25 mcg PO DAILY 06/06/23 06/06/23 History Loperamide [Imodium] 4 mg PO QID PRN 06/06/23 06/06/23 History Losartan Potassium 100 mg PO DAILY 06/06/23 06/06/23 History Memantine [Namenda] 5 mg PO BID 06/06/23 06/06/23 History Allergies Allergy/AdvReac Type Severity Reaction Status Date / Time No Known Allergies Allergy Verified 06/06/23 14:57 Physical Exam Vitals: Vital Signs Temp Pulse Pulse Resp BP BP Pulse Ox 06/07/23 07:26 97.5 F L 48 L 15 90/60 97 06/07/23 06:53 50 L 16 140/74 97 06/07/23 04:00 51 L 18 101/58 98 06/07/23 03:00 50 L 16 109/61 100 06/07/23 01:59 52 L 16 113/68 98 06/06/23 23:28 85 18 103/63 96 06/06/23 20:55 74 18 108/54 98 06/06/23 19:48 84 18 109/56 97 06/06/23 19:00 67 17 109/67 99 06/06/23 17:32 64 18 119/99 95 06/06/23 15:30 65 16 105/57 100 06/06/23 15:00 53 L 15 107/63 99 06/06/23 14:30 50 L 18 104/60 99 06/06/23 14:00 53 L 16 108/59 100 06/06/23 13:30 49 L 17 92/56 99 06/06/23 13:14 45 L 17 92/56 100 06/06/23 13:00 44 L 18 78/51 100 06/06/23 12:42 99 06/06/23 12:33 44 L 06/06/23 12:22 97.0 F L 47 L 18 84/48 100 Results 06/07/23 04:02 06/07/23 04:02 Cardiac Enzymes 06/06/23 06/06/23 06/06/23 Range/Units 13:17 13:17 16:22 AST 20 (17-59) U/L Troponin I <0.012 <0.012 (0.000-0.034) ng/mL 06/06/23 06/07/23 Range/Units 21:05 04:02 AST 26 (17-59) U/L Troponin I <0.012 (0.000-0.034) ng/mL Coagulation 06/06/23 Range/Units 13:17 PT 10.6 (9.0-12.0) sec APTT 24.1 (22.0-30.0) sec CBC 06/06/23 06/07/23 Range/Units 13:17 04:02 WBC 4.8 5.0 (3.8-10.6) k/uL RBC 3.43 L 3.60 L (4.30-5.90) m/uL Hgb 11.8 L 12.5 L (13.0-17.5) gm/dL Hct 34.3 L 36.2 L (39.0-53.0) % Plt Count 128 L 123 L (150-450) k/uL Comprehensive Metabolic Panel 06/06/23 06/07/23 Range/Units 13: 04:02 Sodium 137 137 (137-145) mmol/L Potassium 3.7 4.3 (3.5-5.1) mmol/L Chloride 107 103 (98-107) mmol/L Carbon Dioxide 25 29 (22-30) mmol/L BUN 22 H 19 (9-20) mg/dL Creatinine 0.90 0.94 (0.66-1.25) mg/dL Glucose 67 L 84 (74-99) mg/dL Calcium 7.6 L 8.9 (8.4-10.2) mg/dL AST 20 26 (17-59) U/L ALT 17 18 (4-49) U/L Alkaline Phosphatase 62 71 (38-126) U/L Total Protein 5.2 L 6.2 L (6.3-8.2) g/dL Albumin 3.0 L 3.6 (3.5-5.0) g/dL Current Medications Generic Name Dose Route Start Last Admin Trade Name Freq PRN Reason Stop Dose Admin Aspirin 81 mg 06/07/23 09:00 Aspirin 81 Mg PO DAILY [facility] Atorvastatin Calcium 10 mg 06/07/23 09:00 Atorvastatin 10 Mg Tab PO DAILY [facility] Citalopram Hydrobromide 40 mg 06/07/23 09:00 Citalopram Hydrobromide 20 Mg Tab PO DAILY [facility] Cyanocobalamin 1,000 mcg 06/07/23 09:00 Cyanocobalamin 500 Mcg Tab PO DAILY [facility] Dextrose/Water 25 ml 06/06/23 15:32 Dextrose 50% Syringe 50 Ml IVP PER PROTOCOL PRN Hypoglycemia Protocol Dextrose/Water 50 ml 06/06/23 15:32 Dextrose 50% Syringe 50 Ml IVP PER PROTOCOL PRN Hypoglycemia Protocol Donepezil HCl 10 mg 06/06/23 21:00 06/06/23 20:53 Donepezil 10 Mg Tab PO 10 mg HS JALEESA Administration Enoxaparin Sodium 40 mg 06/06/23 19:00 06/06/23 19:56 Enoxaparin 40 Mg/0.4 Ml Syringe SQ 40 mg DAILY JALEESA Administration Levothyroxine Sodium 25 mcg 06/07/23 06:30 Levothyroxine 25 [place] [address] JALEESA Memantine 5 mg 06/06/23 21:00 06/06/23 20:53 Memantine 5 Mg Tab PO 5 mg BID JALEESA Administration Naloxone HCl 0.2 mg 06/06/23 15:17 Naloxone 0.4 Mg/Ml 1 Ml Vial IV Q2M PRN Opioid Reversal 06/07/23 04:02 06/07/23 04:02
[2023-06-07] MEDS: CYANOCOBALAMIN 500 MCG TAB PO SCH (10:24)
[2023-06-07] MEDS: LEVOTHYROXINE 25 MCG TAB PO SCH (10:24)
[2023-06-07] MEDS: MEMANTINE 5 MG TAB PO SCH ×2 (10:24→18:48)
[2023-06-07] MEDS: ASPIRIN 81 MG PO SCH (10:25)
[2023-06-07] MEDS: ENOXAPARIN 40 MG/0.4 ML SYRINGE SQ SCH (10:25)
[2023-06-07] MEDS: ATORVASTATIN 10 MG TAB PO SCH (10:25)
[2023-06-07] MEDS: CITALOPRAM HYDROBROMIDE 20 MG TAB PO SCH (10:25)
[2023-06-07 10:36] LABS: Glucose,Whole Blood 94 mg/dL (70-110)
--- NOTE | 2023-06-07 11:01 | CA ---
Transthoracic Echo Report Name: Marcelo Cooney Age: 73 Gender: M : 1950 Exam Date: 06/07/2023 09:12 Exam Location: [facility] Ht (in): 70 Wt (lb): 180 Ordering Physician: Raymundo Alba Attending/Referring Phys: Breast Trimmer Vee Clayton RDCS Procedure CPT: Indications: Assessment and function of heart Cardiac Hx: Technical Quality: Very technically difficult study Contrast 1: Lumason Total Dose (mL): 3 Contrast 2: Total Dose (mL): MEASUREMENTS (Male / Female) Normal Values 2D ECHO LV Diastolic Diameter PLAX 4.8 cm 4.2 - 5.9 / 3.9 - 5.3 cm LV Systolic Diameter PLAX 3.4 cm IVS Diastolic Thickness 1.5 cm 0.6 - 1.0 / 0.6 - 0.9 cm LVPW Diastolic Thickness 1.5 cm 0.6 - 1.0 / 0.6 - 0.9 cm LV Relative Wall Thickness 0.6 RV Internal Dim ED PLAX 3.4 cm LA Systolic Diameter LX 4.0 cm 3.0 - 4.0 / 2.7 - 3.8 cm M-MODE Aortic Root Diameter MM 3.8 cm AV Cusp Separation MM 1.7 cm DOPPLER AV Peak Velocity 193.1 cm/s AV Peak Gradient 14.9 mmHg AV Mean Velocity 152.5 cm/s AV Mean Gradient 10.1 mmHg AV Velocity Time Integral 51.4 cm MV Area PHT 1.7 cm??? Mitral E Point Velocity 84.7 cm/s Mitral A Point Velocity 83.0 cm/s Mitral E to A Ratio 1.0 MV Deceleration Time 435.1 ms TR Peak Velocity 215.2 cm/s TR Peak Gradient 18.5 mmHg Right Ventricular Systolic Press 22.8 mmHg FINDINGS Left Ventricle Left ventricular ejection fraction is estimated at 50-55 %. Left ventricular cavity size normal. Moderate concentric left ventricular hypertrophy. Right Ventricle Mild right ventricular dilatation. Right ventricular systolic pressure within normal limits. Right Atrium Normal right atrial size. Left Atrium Mild left atrial dilatation. Mitral Valve Mitral valve not well visualized. No mitral regurgitation. Aortic Valve Aortic valve sclerosis. Mild aortic stenosis with a peak gradient of 15 mmHg and a mean gradient of 8 mmHg. Tricuspid Valve Tricuspid valve not well visualized. Trace to mild tricuspid regurgitation. Pulmonic Valve Pulmonic valve not well visualized. Pericardium No pericardial effusion. Aorta Mild aortic dilatation at the level of the sinotubular junction. CONCLUSIONS Taking very difficult study with very suboptimal acoustic windows despite echo contrast Left ventricular ejection fraction of about 50% Previewed by: Dr. Aroldo Rodrigues MD (Electronically Signed) Final Date: 07 June 2023 11:00
[2023-06-07 17:10] LABS: Glucose,Whole Blood 98 mg/dL (70-110)
--- NOTE | 2023-06-07 17:36 | P.PN ---
Subjective Progress Note Date: 06/07/23 Hospital Course: Patient is a very pleasant 73-year-old male with a past medical history of advanced Alzheimer's dementia, hypertension, hyperlipidemia, and chronic diarrhea on daily Imodium. He presented to the emergency department today status post reported concerns of syncopal episode. Patient has advanced Alzheimer's dementia and currently at baseline mentation alert to person only. Per patient's at bedside, patient was at [facility] where he attends day camp twice weekly. She reports she was notified that her started shaking/trembling and became very unsteady and fell to the ground with concerns that he hit the left side of his head followed by a loss of consciousness reportedly lasting approximately 90 seconds and EMS was called. It is unclear if patient lost consciousness prior to fall or after fall and was sent to the emergency department for evaluation. Patient's reports until being notified of her 's loss of consciousness/syncopal episode, he has been at his baseline normal with no recent illnesses or exposure to known ill contacts. She states he follows outpatient with his primary care doctor, Dr. Whitaker and last seen him in the office yesterday for a well check visit. She reports that her does have chronic diarrhea and takes approximately 5-6 tablets of Imodium daily, but reports this has been ongoing and unchanged. She denies any episodes of hematochezia or melena. She denies any recent medication changes, history of coronary artery disease, previous syncopal episodes, history of seizures or known cardiac arrhythmias. Patient underwent full evaluation in the emergency department. Upon arrival patient was found to be hypotensive and bradycardic with blood pressure 84/48 and heart rate 44. EKG was completed showing atrial fibrillation with a slowed ventricular response at 44 bpm upon personal review and interpretation. CT brain also completed in radiology report reviewed stating nonspecific white matter changes likely secondary to chronic small vessel ischemic disease but negative for acute intracranial process. Chest x-ray completed and upon review lungs appear clear with radiology report stating negative for acute cardiopulmonary process. Labs completed and reviewed. CBC showing normocytic anemia with hemoglobin of 11.8 and thrombocytopenia with platelet count of 128. Coagulation profile normal findings. BMP showing mild prerenal azotemia with BUN of 22 and hypoglycemia with glucose of 67. Magnesium normal findings at 2.1. Corrected calcium is 8.4. Liver profile unremarkable with the exception of low protein of 5.2 and hypoalbuminemia with albumin of 3.0. TSH normal findings at 1.5-0 with free T4 of 0.96. Patient admitted under our services with consultation to neurology and cardiology. Physical exam: Vital signs reviewed and stable. General: Nontoxic, no distress and appears stated age. Derm: Skin warm and dry, normal coloration for ethnicity. Head: Atraumatic, normocephalic and symmetric. Very hard of hearing. Eyes: EOMs intact, no lid lag, and anicteric sclera Mouth: no lip lesions, mucus membranes moist Cardiovascular: Bradycardic rate, regular rhythm with systolic murmur, positive posterior tibial pulses bilaterally, and cap refill < 2 seconds. Lungs: Respirations even, regular, and unlabored on room air. Lungs CTA bilaterally, no rhonchi, no rales, no wheezing, and no accessory muscle usage. Abdominal: soft, nontender to palpation, no guarding, no appreciable o rganomegaly Ext: ROM intact. No gross muscle atrophy, no edema, no contractures Neuro: Speech clear, face symmetrical and CN II-XII grossly intact with no noted focal neuro deficits Psych: Alert and oriented to person only. Patient confused to place, time, and situation at baseline. Appropriate and pleasant affect. Assessment and Plan of Care: Patient is a 73-year-old male with a past medical history of advanced Alzheimer's dementia, hypertension, hyperlipidemia, and chronic diarrhea on daily Imodium. Syncopal episode, unclear etiology. New-onset atrial fibrillation with a slowed ventricular response, currently maintaining sinus mechanism at bradycardic rate 40s to 50s Hypotension and bradycardia Hypoglycemia -[id number] score 3, HAS-BLED Score 1. -Hypoglycemic events appears to be isolated event. Patient has had no further episodes of documented hypoglycemia since admission. -Cardiology following. Discussed with healthcare insurance sales agent and cardiology ETHOLOGIST, will continue to hold off on starting anticoagulation at this time. Cardiology recommending continued telemetry and further evaluation for possible pacemaker placement. -Telemetry monitoring. -Since no further episodes of hypoglycemia since admission, Point of care glucose checks may be changed to every 6 hours and we will continue with glycemic protocol as needed. -Consult placed to neurology, appreciate recommendations. -Continue Neuro checks every 4 hours -Continue Fall precautions -Patient to continue with cardiac medication regimen consisting of aspirin 81 mg daily, atorvastatin 10 mg daily, and losartan 100 mg daily. Advanced Alzheimer's dementia Patient to be provided with safe and supportive care with redirection and/or reorientation and assistance as needed. Fall precautions Patient to continue daily medication regimen with Celexa 40 mg daily, Aricept 10 mg nightly, and Namenda 5 mg twice daily. Hypothyroidism Patient to continue daily medication regimen with levothyroxine 25 g daily. Data review: Morning labs reviewed. CBC showing macrocytic anemia with hemoglobin of 12.5. BMP unremarkable. Liver profile unremarkable. Vital signs reviewed. Patient again with hypotension and bradycardia this morning. Blood pressure 90/60, heart rate 48, respiratory rate 15, temp 97.5F, SpO2 of 97% on room air. CODE STATUS: Full code DVT prophylaxis: Lovenox Discussed with: Patient, patient's , RN, cardiology ETHOLOGIST and healthcare insurance sales agent Anticipated discharge date: Clinical course to determine Anticipated discharge place: Home Patient was seen independently by Nurse Practitioner. This document was prepared using [employer] dictation software. Please allow for errors in rehabilitation engineer while rare they do occur. Raymundo Alba NP rendered care for this patient independently, reviewed the findings and plan as documented in the note above. I did not physically speak with or examine the patient on this date. Objective - Vital Signs Vital signs: Vital Signs Temp 97.5 F L 06/07/23 07:26 Pulse 48 L 06/07/23 07:26 Resp 15 06/07/23 07:26 BP 90/60 06/07/23 07:26 Pulse Ox 97 06/07/23 07:26 FiO2 Intake & Output 06/06/23 06/07/23 06/07/23 18:59 06:59 18:59 Weight 81.647 kg - Labs CBC & Chem 7: 06/09/23 10:11 06/09/23 10:11 Labs: Abnormal Lab Results - Last 24 Hours (Table) 06/06/23 06/06/23 06/06/23 Range/Units 13:17 13:17 19:55 RBC 3.43 L (4.30-5.90) m/uL Hgb 11.8 L (13.0-17.5) gm/dL Hct 34.3 L (39.0-53.0) % MCV (80.0-100.0) fL Plt Count 128 L (150-450) k/uL BUN 22 H (9-20) mg/dL Glucose 67 L (74-99) mg/dL POC Glucose (mg/dL) 129 H (70-110) mg/dL Calcium 7.6 L (8.4-10.2) mg/dL Total Protein 5.2 L (6.3-8.2) g/dL Albumin 3.0 L (3.5-5.0) g/dL 06/07/23 06/07/23 Range/Units 04:02 04:02 RBC 3.60 L (4.30-5.90) m/uL Hgb 12.5 L (13.0-17.5) gm/dL Hct 36.2 L (39.0-53.0) % MCV 100.6 H (80.0-100.0) fL Plt Count 123 L (150-450) k/uL BUN (9-20) mg/dL Glucose (74-99) mg/dL POC Glucose (mg/dL) (70-110) mg/dL Calcium (8.4-10.2) mg/dL Total Protein 6.2 L (6.3-8.2) g/dL Albumin (3.5-5.0) g/dL
[2023-06-07] MEDS: DONEPEZIL 10 MG TAB PO SCH (18:47)
[2023-06-07] MEDS ORDERED: ALPRAZolam 0.5 MG TAB PO PRN (19:21)
[2023-06-07 20:03] LABS: Glucose,Whole Blood 115 mg/dL (70-110)
[2023-06-07] MEDS ORDERED: QUEtiapine 25 MG TAB PO SCH (21:00)
[2023-06-08 06:48] LABS: Glucose,Whole Blood 98 mg/dL (70-110)
[2023-06-08] MEDS: LEVOTHYROXINE 25 MCG TAB PO SCH (06:57)
[2023-06-08] MEDS: CITALOPRAM HYDROBROMIDE 20 MG TAB PO SCH (08:13)
[2023-06-08] MEDS: ASPIRIN 81 MG PO SCH (08:13)
[2023-06-08] MEDS: ATORVASTATIN 10 MG TAB PO SCH (08:13)
[2023-06-08] MEDS: ENOXAPARIN 40 MG/0.4 ML SYRINGE SQ SCH (08:13)
[2023-06-08] MEDS: CYANOCOBALAMIN 500 MCG TAB PO SCH (08:13)
[2023-06-08] MEDS: MEMANTINE 5 MG TAB PO SCH ×2 (08:13→20:14)
--- NOTE | 2023-06-08 09:32 | P.PN ---
Subjective Progress Note Date: 06/08/23 Hospital Course: Patient is a very pleasant 73-year-old male with a past medical history of advanced Alzheimer's dementia, hypertension, hyperlipidemia, and chronic diarrhea on daily Imodium. He presented to the emergency department today status post reported concerns of syncopal episode. Patient has advanced Alzheimer's dementia and currently at baseline mentation alert to person only. Per patient's at bedside, patient was at [facility] where he attends day camp twice weekly. She reports she was notified that her started shaking/trembling and became very unsteady and fell to the ground with concerns that he hit the left side of his head followed by a loss of consciousness reportedly lasting approximately 90 seconds and EMS was called. It is unclear if patient lost consciousness prior to fall or after fall and was sent to the emergency department for evaluation. Patient's reports until being notified of her 's loss of consciousness/syncopal episode, he has been at his baseline normal with no recent illnesses or exposure to known ill contacts. She states he follows outpatient with his primary care doctor, Dr. Whitaker and last seen him in the office yesterday for a well check visit. She reports that her does have chronic diarrhea and takes approximately 5-6 tablets of Imodium daily, but reports this has been ongoing and unchanged. She denies any episodes of hematochezia or melena. She denies any recent medication changes, history of coronary artery disease, previous syncopal episodes, history of seizures or known cardiac arrhythmias. Patient underwent full evaluation in the emergency department. Upon arrival patient was found to be hypotensive and bradycardic with blood pressure 84/48 and heart rate 44. EKG was completed showing atrial fibrillation with a slowed ventricular response at 44 bpm upon personal review and interpretation. CT brain also completed in radiology report reviewed stating nonspecific white matter changes likely secondary to chronic small vessel ischemic disease but negative for acute intracranial process. Chest x-ray completed and upon review lungs appear clear with radiology report stating negative for acute cardiopulmonary process. Labs completed and reviewed. CBC showing normocytic anemia with hemoglobin of 11.8 and thrombocytopenia with platelet count of 128. Coagulation profile normal findings. BMP showing mild prerenal azotemia with BUN of 22 and hypoglycemia with glucose of 67. Magnesium normal findings at 2.1. Corrected calcium is 8.4. Liver profile unremarkable with the exception of low protein of 5.2 and hypoalbuminemia with albumin of 3.0. TSH normal findings at 1.5-0 with free T4 of 0.96. Patient admitted under our services with consultation to neurology and cardiology. Physical exam: Vital signs reviewed and stable. General: Nontoxic, no distress and appears stated age. Derm: Skin warm and dry, normal coloration for ethnicity. Head: Atraumatic, normocephalic and symmetric. Very hard of hearing. Eyes: EOMs intact, no lid lag, and anicteric sclera Mouth: no lip lesions, mucus membranes moist Cardiovascular: Bradycardic rate, regular rhythm with systolic murmur, positive posterior tibial pulses bilaterally, and cap refill < 2 seconds. Lungs: Respirations even, regular, and unlabored on room air. Lungs CTA bilaterally, no rhonchi, no rales, no wheezing, and no accessory muscle usage. Abdominal: soft, nontender to palpation, no guarding, no appreciable o rganomegaly Ext: ROM intact. No gross muscle atrophy, no edema, no contractures Neuro: Speech clear, face symmetrical and CN II-XII grossly intact with no noted focal neuro deficits Psych: Alert and oriented to person only. Patient confused to place, time, and situation at baseline. Appropriate and pleasant affect. Assessment and Plan of Care: Patient is a 73-year-old male with a past medical history of advanced Alzheimer's dementia, hypertension, hyperlipidemia, and chronic diarrhea on daily Imodium. Syncopal episode, unclear etiology. New-onset atrial fibrillation with a slowed ventricular response, currently maintaining sinus mechanism at bradycardic rate 40s to 50s Hypotension and bradycardia Hypoglycemia -[id number] score 3, HAS-BLED Score 1. -Hypoglycemic event appears to be isolated event. Patient has had no further episodes of documented hypoglycemia since admission. -Cardiology following and reviewed documentation in chart and discussed plan of care with cardiology ASSEMBLER INSTALLER GENERAL. -Telemetry monitoring. -Continue point of care glucose checks every 6 hours and we will continue with glycemic protocol as needed. -Consult placed to neurology, appreciate recommendations. -Continue Neuro checks every 4 hours -Continue Fall precautions -Patient to continue with cardiac medication regimen consisting of aspirin 81 mg daily, atorvastatin 10 mg daily, and losartan 100 mg daily. Advanced Alzheimer's dementia Sundowner's with behavioral disturbances Patient to be provided with safe and supportive care with redirection and/or reorientation and assistance as needed. Patient started on Seroquel 25 mg nightly, was not effective in assisting patient with aggitation and aggressive behaviors with behavioral disturbances overnight. Will increase to 50 mg nightly tonight and continue to monitor for improvement. Fall precautions Patient to continue daily medication regimen with Celexa 40 mg daily, Aricept 10 mg nightly, and Namenda 5 mg twice daily. Hypothyroidism Patient to continue daily medication regimen with levothyroxine 25 g daily. Data review: Vital signs reviewed. Patient again with hypotension and bradycardia this morning. Blood pressure 159/71, heart rate 61, respiratory rate 20, temp 97.6F, SpO2 of 96% on room air. Morning glucose 98. Blood glucose levels ranging from 84-115 over the past 24 hours with no further episodes of hypoglycemia since admission. CODE STATUS: Full code DVT prophylaxis: Lovenox Discussed with: Patient, patient's , RN, and cardiology ASSEMBLER INSTALLER GENERAL Anticipated discharge date: Clinical course to determine Anticipated discharge place: Home Patient was seen independently by Nurse Practitioner. This document was prepared using [employer] dictation software. Please allow for errors in funeral home assistant while rare they do occur. Raymundo Alba, MARIANELA rendered care for this patient independently, reviewed the findings and plan as documented in the note above. I did not physically speak with or examine the patient on this date. Objective - Vital Signs Vital signs: Vital Signs Temp 97.9 F 06/08/23 04:00 Pulse 57 L 06/08/23 04:00 Resp 19 06/08/23 04:00 BP 110/65 06/08/23 04:00 Pulse Ox 95 06/08/23 04:00 FiO2 21 06/08/23 01:03 Intake & Output 06/07/23 06/08/23 06/08/23 18:59 06:59 18:59 Weight 81.647 kg Other: Voiding Method Diaper Diaper Incontinent Incontinent # Voids 2 # Bowel Movements 1 - Labs CBC & Chem 7: 06/09/23 10:11 06/09/23 10:11 Labs: Abnormal Lab Results - Last 24 Hours (Table) 06/07/23 Range/Units 20:02 POC Glucose (mg/dL) 115 H (70-110) mg/dL
--- NOTE | 2023-06-08 10:57 | P.CNNES ---
History of Present Illness Consult date: 06/07/23 Requesting physician: Raymundo Alba Reason for Consult: syncope vs fall with LOC after reported episode of shaking/trembling History of Present Illness: Patient is a 73-year-old male with history of advanced dementia, was brought to the hospital yesterday at 12:14 PM for syncopal spell. Patient has severe dementia, cannot provide any history. As per EMS flow sheet, when EMS arrived at [facility], the staff mentioned that patient was walking and "passed out". They stated the patient did not fall hard and landed on his right shoulder area. He did not hit his head and is not on blood thinners. Patient was unresponsive for around a minute. They got him sat in the chair and check BP which was 60/40. On EMS arrival, patient was alert and oriented to his normal per his . His skin was pink, warm and dry. Patient was in no pain. Blood pressure was rechecked was 80/50. Pulse was slow and irregular. EKG showed atrial fibrillation with slow ventricular response. Heart rate was bouncing between 40 and 80. IV was established and fluid started. His blood glucose was 100. Repeat blood pressure was 87/52. Vital signs on arrival blood pressure 84/48, pulse rate 47, temperature 97.0. Blood test shows normal WBC hemoglobin 11.8, platelets 128. PT/PTT normal, Chem-20 normal, troponin negative. TFTs normal. EKG shows atrial flutter. Computed tomography scan of the head revealed no acute intracranial process. Nonspecific white matter changes, likely secondary to chronic small vessel ischemic disease. I personally reviewed CT head, agree with the findings. The significant temporal lobe atrophy. Chest x-ray revealed no acute tapering process. Patient at present appears to be severely confused, appears to have significant aphasia, which according to the nursing report, and was told by patient's is baseline. Please refer to examination below. Cardiology has seen the patient and believe new onset paroxysmal atrial fibrillation, syncope with sinus bradycardia. 2-D echo was recommended. Patient regarding tobacco use, states "never", and regarding alcohol says "not much" Review of Systems Constitutional: Denies chills, Denies fever Eyes: denies blurred vision, denies pain Ears, nose, mouth and throat: Denies headache Cardiovascular: Denies chest pain, Denies shortness of breath Respiratory: Denies cough, Denies excessive sputum Gastrointestinal: Denies abdominal pain, Denies diarrhea, Denies nausea, Denies vomiting Musculoskeletal: Denies low back pain, Denies neck pain Integumentary: Denies pruritus, Denies rash Neurological: Reports as per HPI Psychiatric: Reports confusion, Reports irritability, Reports memory loss Endocrine: Denies fatigue, Denies weight change Past Medical History Past Medical History: Hyperlipidemia, Hypertension Additional Past Medical History / Comment(s): HX FORGETFULNESS-ON ARICEPT, RESTLESS LEG SYNDROME, HAD SLEEP STUDY RECENTLY-IN PROCESS OF GETTING C-PAP, LOOSE STOOL @ TIMES- SOMETIMES HARD TO CONTROL, ALSO HAVING SOME BELCHING, History of Any Multi-Drug Resistant Organisms: None Reported Past Surgical History: Bowel Resection, Cholecystectomy, Joint Replacement, Orthopedic Surgery Additional Past Surgical History / Comment(s): COLON RESECTION FOR ADENOMA, COLONOSCOPY, RT HIP REPLACEMENT, ARTHROSCOPIC GERMAN. KNEES, PIN IN LT SHOULDER @ AGE 16 Past Anesthesia/Blood Transfusion Reactions: No Reported Reaction Past Psychological History: No Psychological Hx Reported Smoking Status: Never smoker Past Alcohol Use History: None Reported, Occasional Past Drug Use History: None Reported - Past Family History Mother Family Medical History: Cancer, Diabetes Mellitus Additional Family Medical History / Comment(s): STOMACH CA Father Family Medical History: Skin Disorder Additional Family Medical History / Comment(s): SEVERE PSORIASIS Medications and Allergies Home Medications Medication Instructions Recorded Confirmed Type Aspirin 81 mg PO DAILY 05/07/15 06/06/23 History Donepezil [Aricept] 10 mg PO HS 05/07/15 06/06/23 History Simvastatin [Zocor] 20 mg PO DAILY 05/07/15 06/06/23 History Citalopram Hydrobromide [CeleXA] 40 mg PO DAILY 06/06/23 06/06/23 History Cyanocobalamin (Vitamin B-12) 1,000 mcg PO DAILY 06/06/23 06/06/23 History [Vitamin B-12] Levothyroxine Sodium [Synthroid] 25 mcg PO DAILY 06/06/23 06/06/23 History Loperamide [Imodium] 4 mg PO QID PRN 06/06/23 06/06/23 History Losartan Potassium 100 mg PO DAILY 06/06/23 06/06/23 History Memantine [Namenda] 5 mg PO BID 06/06/23 06/06/23 History Allergies Allergy/AdvReac Type Severity Reaction Status Date / Time No Known Allergies Allergy Verified 06/06/23 14:57 Physical Examination - Vital Signs Vital Signs: Vital Signs Temp Pulse Pulse Resp BP BP Pulse Ox 06/07/23 18:50 57 L 16 130/72 97 06/07/23 16:00 67 16 117/67 98 06/07/23 12:40 58 L 16 100/46 98 06/07/23 07:26 97.5 F L 48 L 15 90/60 97 06/07/23 06:53 50 L 16 140/74 97 06/07/23 04:00 51 L 18 101/58 98 06/07/23 03:00 50 L 16 109/61 100 06/07/23 01:59 52 L 16 113/68 98 06/06/23 23:28 85 18 103/63 96 06/06/23 20:55 74 18 108/54 98 06/06/23 19:48 84 18 109/56 97 Intake and Output 06/07/23 06/07/23 06/07/23 06:59 14:59 22:59 Other: Voiding Method Diaper Incontinent Weight 81.647 kg Patient is an elderly male, very pleasantly confused. Patient is alert awake, oriented 0. Patient only knows his name, but could not tell me his age. He could not tell the current month, year. Patient not able to name any object. Cannot repeat. Patient has severe expressive and receptive aphasia. This is related to his pre-existing dementia as per patient's report to the nurses. Attention, concentration and fund of knowledge is very severely limited. Patient has very strongly positive visuospatial apraxia, palmomental reflex and snout reflex. On cranial nerve examination, pupils are equal, round and reacting to light, v isual pantoja were difficult to test, but patient does blink to visual threat bilaterally. Extraocular muscles are intact with no nystagmus. Face is symmetric, tongue protrudes to the midline. Palatal elevation and sensation normal, hearing appears normal, although difficult to assess and shoulder shrug normal, facial sensation cannot be assessed. On muscle strength testing, there is no pronator drift and the strength is normal in arms and legs distally and proximally. Deep tendon reflexes are symmetric 1+ in the upper limbs, lower limbs and plantars are flat. Sensory to touch cannot be assessed. Cerebellar function showed no ataxia for [id number] testing. No dysdiadochokinesia. Tone and bulk of muscles normal. Gait deferred.. On general examination, there is no carotid bruit or murmur, S1-S2 audible. Chest is clear on consultation. Abdomen is soft nontender. No organomegaly, bowel sounds present. Peripheral pulses are present. No edema. Results - Laboratory Findings CBC and BMP: 06/07/23 04:02 06/07/23 04:02 Abnormal Lab Findings: Abnormal Labs 06/06/23 06/06/23 06/06/23 13:17 13:17 19:55 RBC 3.43 L Hgb 11.8 L Hct 34.3 L MCV Plt Count 128 L BUN 22 H Glucose 67 L POC Glucose (mg/dL) 129 H Calcium 7.6 L Total Protein 5.2 L Albumin 3.0 L 06/07/23 06/07/23 04:02 04:02 RBC 3.60 L Hgb 12.5 L Hct 36.2 L MCV 100.6 H Plt Count 123 L BUN Glucose POC Glucose (mg/dL) Calcium Total Protein 6.2 L Albumin Assessment and Plan Assessment: * Syncopal spell, most likely due to combination of arrhythmia, bradycardia and hypotension. * New onset atrial fibrillation * Hypotension. Patient's blood pressure at the scene was 60/40, which went up to 80/50 and remained like this until after patient arrived to the ER. * Advanced dementia with aphasia * Hypertension * Hyperlipidemia Plan: * Patient's syncopal spell was likely related to arrhythmia/hypotension. Cardiology on board. * Neurologically no other workup indicated regarding syncopal spell. * Patient has advanced dementia. Patient appears to be severely aphasic. As per nursing report, this is patient's baseline, not acute change. * I tried to call patient's , but the cell phone number listed was not correct, and cannot leave message on land line (voice messages full). * Continue Aricept 10 mg, Namenda 5 mg twice a day. * Patient currently on vitamin B12 1000 g orally daily, therefore no need to check the level. Last B12 was 260. * Hemoglobin A1c 5.5. * We will follow. Thank you for the consult.
[2023-06-08 11:41] LABS: Glucose,Whole Blood 104 mg/dL (70-110)
--- NOTE | 2023-06-08 13:21 | P.PN ---
Subjective HISTORY OF PRESENT ILLNESS: This is a 73-year-old male with a past medical history significant for hyperlipidemia, dementia, hypertension, and hypothyroidism. Patient does not follow with a railroad auditor. We have been asked to see the patient in consultation for atrial fibrillation and syncope. [facility] in [facility] room. Patient is alert and oriented to himself only. There is no family at bedside. Apparently the patient had a syncopal episode while at his adult daycare. The patient currently denies any chest pain or pressure. He denies shortness of breath. Telemetry reveals sinus rhythm with a heart rate in the 50s. EKG performed on arrival revealed atrial fibrillation with a heart rate in the 40s. Patient was also hypotensive with a blood pressure in the 90s. He has not been started on anticoagulation secondary to fall risk. * EKG reveals atrial fibrillation with slow ventricular rate * Chest xray negative for acute process * Laboratory data: WBC 5.0. Hemoglobin for 12.5. Platelet count 123. Sodium 137. Potassium 4.3. BUN 19. Creatinine 0.94. Troponin negative x 3. * Current home cardiac medications include aspirin 81 mg daily, simvastatin 20 mg daily, losartan 100 mg daily 06/08/2023 Patient examined this morning at the bedside. Patient denies chest pain or pressure. Denies SOB. Patient currently not on telemetry monitoring at the time of examination. Vital signs are stable. Heart rate in the 50-60s. Echocardiogram completed revealing ejection fraction 50-55%, moderate LVH, mild aortic stenosis, trace to mild tricuspid regurgitation. PHYSICAL EXAM: VITAL SIGNS: Reviewed. GENERAL: Well-developed in no acute distress. HEENT: Head is normocephalic. Pupils are equal, round. Sclerae anicteric. Mucous membranes of the mouth are moist. Neck supple. No JVD or thyromegaly LUNGS: Respirations even and unlabored. Lungs essentially clear to auscultation bilaterally. HEART: Bradycardia. Regular rate and rhythm. S1 and S2 heard. ABDOMEN: Soft. Nondistended. Nontender. EXTREMITIES: Normal range of motion. No clubbing or cyanosis. Peripheral pulses intact. No lower extremity edema NEUROLOGIC: Awake and alert. Oriented x 1. ASSESSMENT: Syncope, etiology unclear New-onset paroxysmal atrial fibrillation with slow ventricular rate, currently maintaining sinus mechanism Sinus bradycardia Hyperlipidemia Hypertension Hypothyroidism Dementia PLAN: No AV reji blocking agent secondary to bradycardia Patient is not a good candidate for anticoagulation secondary to dementia and fall risk. This was discussed with patients family today at the bedside who are in agreement. Resume telemetry monitoring to assess the need for pacemaker implantation Patient to be ambulating today with telemetry on to assess for chronotropic incompetence Patient to receive event monitor from [facility] at discharge Further recommendations pending patient's course Nurse practitioner note has been reviewed by physician. Signing provider agrees with the documented findings, assessment, and plan of care. Objective - Vital Signs Vital signs: Vital Signs Temp 98.4 F 06/08/23 11:42 Pulse 85 06/08/23 11:42 Resp 20 06/08/23 11:42 BP 118/68 06/08/23 11:42 Pulse Ox 93 L 06/08/23 11:42 FiO2 21 06/08/23 01:03 Intake & Output 06/07/23 06/08/23 06/08/23 18:59 06:59 18:59 Weight 81.647 kg Other: Voiding Method Diaper Diaper Diaper Incontinent Incontinent Incontinent # Voids 2 # Bowel Movements 1 - Labs CBC & Chem 7: 06/07/23 04:02 06/07/23 04:02 Labs: Abnormal Lab Results - Last 24 Hours (Table) 06/07/23 Range/Units 20:02 POC Glucose (mg/dL) 115 H (70-110) mg/dL
[2023-06-08 16:31] LABS: Glucose,Whole Blood 90 mg/dL (70-110)
[2023-06-08 20:08] LABS: Glucose,Whole Blood 108 mg/dL (70-110)
[2023-06-08] MEDS: DONEPEZIL 10 MG TAB PO SCH (20:14)
[2023-06-08] MEDS ORDERED: QUEtiapine 50 MG TAB PO SCH (21:00)
[2023-06-08 22:41] VITALS: RESP 16; TEMP 97.8
[2023-06-09 01:00] VITALS: BP 127/77; PULSE 65
[2023-06-09 02:42] LABS: Glucose,Whole Blood 100 mg/dL (70-110)
[2023-06-09 06:08] LABS: Glucose,Whole Blood 97 mg/dL (70-110)
[2023-06-09] MEDS ORDERED: LEVOTHYROXINE 25 MCG TAB ONE (06:30)
--- NOTE | 2023-06-09 10:09 | P.PN ---
Subjective Progress Note Date: 06/08/23 Patient was seen for a follow-up. Patient continues to be extremely confused, pacing around. Patient does not follow directions, and wants to wander around. Vertebral nursing staff and aids trying to control him. Patient become slightly loud at times. Objective - Vital Signs Vital signs: Vital Signs Temp 98.4 F 06/08/23 16:50 Pulse 62 06/08/23 16:50 Resp 20 06/08/23 16:50 BP 141/60 06/08/23 16:50 Pulse Ox 100 06/08/23 16:50 FiO2 21 06/08/23 01:03 Intake & Output 06/08/23 06/08/23 06/09/23 06:59 18:59 06:59 Intake Total 780 Balance 780 Intake: Oral 780 Other: Voiding Method Diaper Diaper Incontinent Incontinent # Voids 2 2 # Bowel Movements 1 - Exam Patient has severe aphasia, severe dementia. Muscle strength otherwise normal. - Labs CBC & Chem 7: 06/07/23 04:02 06/07/23 04:02 Labs: Abnormal Lab Results - Last 24 Hours (Table) 06/07/23 Range/Units 20:02 POC Glucose (mg/dL) 115 H (70-110) mg/dL Assessment and Plan Assessment: * Syncopal spell, most likely due to combination of arrhythmia, bradycardia and hypotension. * New onset atrial fibrillation * Hypotension. Patient's blood pressure at the scene was 60/40, which went up to 80/50 and remained like this until after patient arrived to the ER. * Advanced dementia with aphasia * Dementia with behavioral disturbance * Hypertension * Hyperlipidemia Plan: * Patient's syncopal spell was likely related to arrhythmia/hypotension. Cardiology on board. * Neurologically no other workup indicated regarding syncopal spell. * Patient has advanced dementia. Patient appears to be severely aphasic. As per nursing report, this is patient's baseline, not acute change. * Consult psychiatry for behavioral disturbance related to dementia. * Continue Aricept 10 mg, we will increase Namenda to 10 mg twice a day. * Patient currently on vitamin B12 1000 g orally daily, therefore no need to check the level. Last B12 was 260. * Hemoglobin A1c 5.5. * Neurologically no other workup indicated. Neurologically clear.
[2023-06-09 10:38] LABS: HCT 36.4 % (39.0-53.0); HGB 12.6 gm/dL (13.0-17.5); MCH 34.3 pg (25.0-35.0); MCHC 34.7 g/dL (31.0-37.0); MCV 98.9 fL (80.0-100.0); Mean Platelet Volume 7.3; Platelet Count 135 k/uL (150-450); RBC 3.68 m/uL (4.30-5.90); RDW 12.2 % (11.5-15.5); WBC 4.8 k/uL (3.8-10.6)
[2023-06-09 10:43] LABS: ALT 19 U/L (4-49); AST 25 U/L (17-59); African American GFR (CKD) >90 (>60 ml/min/1.73 sqM); Albumin 3.7 g/dL (3.5-5.0); Alkaline Phosphatase 69 U/L (38-126); Anion Gap 2 mmol/L; Blood Urea Nitrogen 13 mg/dL (9-20); Calcium 8.8 mg/dL (8.4-10.2); Carbon Dioxide 29 mmol/L (22-30); Chloride 105 mmol/L (98-107); Glucose 92 mg/dL (74-99); Magnesium 2.3 mg/dL (1.6-2.3); Non-African American GFR(CKD) >90 (>60 ml/min/1.73 sqM); Potassium 4.1 mmol/L (3.5-5.1); Sodium 136 mmol/L (137-145); Total Bilirubin 1.7 mg/dL (0.2-1.3); Total Protein 6.2 g/dL (6.3-8.2)
--- NOTE | 2023-06-09 10:52 | P.DS ---
Providers Date of admission: 06/06/23 15:18 Expected date of discharge: 06/09/23 Attending physician: Christopher Talamantes MD Consults: 06/06/23 15:17 Consult Physician Urgent Consulting Provider: Errol Thomas Consult Reason/Comments: Syncope with new-onset A. fib and bradycardia Do you want consulting provider notified?: Already Contacted 06/06/23 16:20 Consult Physician Routine Consulting Provider: Rajat Farnsworth Consult Reason/Comments: syncope vs fall with LOC after reported episode of shaking/trembling Do you want consulting provider notified?: Yes 06/09/23 01:01 Consult Physician Urgent Consulting Provider: Werner Nichols Consult Reason/Comments: Dementia with significant behavioural disturbance Do you want consulting provider notified?: Yes Primary care physician: Fransisco Shane [facility] Course: Discharge Diagnosis: Syncopal episode, unclear etiology. Patient evaluated by cardiology and neurology. Syncopal episode believed to be secondary to hypotension and bradycardia. Neurology clearing patient from a neurological perspective stating no further inpatient workup indicated. Cardiology discontinue losartan and recommending patient follow-up in our office immediately at discharge for placement on event monitor for further workup for evaluation of possible need f or pacemaker. New-onset atrial fibrillation with a slowed ventricular response, currently maintaining sinus mechanism at bradycardic rate 40s to 50s Hypotension and bradycardia. Losartan discontinued. Patient to follow up outpatient with cardiology office at discharge to be placed on event monitor. Hypoglycemia, isolated episode upon arrival. Patient had no further episodes of hypoglycemia since admission. Advanced Alzheimer's dementia with Sundowner's with behavioral disturbances. Patient was started on Seroquel during hospitalization, however per nursing staff this setting up a side effect on patient and he became more confused and agitated. Therefore will not be continuing upon discharge. Patient to continue daily medication regimen with Celexa 40 mg daily, Aricept 10 mg nightly, and Namenda 5 mg twice daily. Hypothyroidism. Patient to continue daily medication regimen with levothyroxine 25 g daily. Hospital Course: Patient is a very pleasant 73-year-old male with a past medical history of advanced Alzheimer's dementia, hypertension, hyperlipidemia, and chronic diarrhea on daily Imodium. He presented to the emergency department today status post reported concerns of syncopal episode. Patient has advanced Alzheimer's dementia and currently at baseline mentation alert to person only. Per patient's at bedside, patient was at [facility] where he attends day camp twice weekly. She reports she was notified that her started shaking/trembling and became very unsteady and fell to the ground with concerns that he hit the left side of his head followed by a loss of consciousness reportedly lasting approximately 90 seconds and EMS was called. It is unclear if patient lost consciousness prior to fall or after fall and was sent to the emergency department for evaluation. Patient's reports until being notified of her 's loss of consciousness/syncopal episode, he has been at his baseline normal with no recent illnesses or exposure to known ill contacts. She states he follows outpatient with his primary care doctor, Dr. Whitaker and last seen him in the office yesterday for a well check visit. She reports that her does have chronic diarrhea and takes approximately 5-6 tablets of Imodium daily, but reports this has been ongoing and unchanged. She denies any episodes of hematochezia or melena. She denies any recent medication changes, history of coronary artery disease, previous syncopal episodes, history of seizures or known cardiac arrhythmias. Patient underwent full evaluation in the emergency department. Upon arrival patient was found to be hypotensive and bradycardic with blood pressure 84/48 and heart rate 44. EKG was completed showing atrial fibrillation with a slowed ventricular response at 44 bpm upon personal review and interpretation. CT brain also completed in radiology report reviewed stating nonspecific white matter changes likely secondary to chronic small vessel ischemic disease but negative for acute intracranial process. Chest x-ray completed and upon review lungs appear clear with radiology report stating negative for acute cardiopulmonary process. Labs completed and reviewed. CBC showing normocytic anemia with hemoglobin of 11.8 and thrombocytopenia with platelet count of 128. Coagulation profile normal findings. BMP showing mild prerenal azotemia with BUN of 22 and hypoglycemia with glucose of 67. Magnesium normal findings at 2.1. Corrected calcium is 8.4. Liver profile unremarkable with the exception of low protein of 5.2 and hypoalbuminemia with albumin of 3.0. TSH normal findings at 1.5-0 with free T4 of 0.96. Patient admitted under our services with consultation to neurology and cardiology. Patient evaluated by cardiology and neurology. Syncopal episode believed to be secondary to hypotension and bradycardia. Neurology clearing patient from a neurological perspective stating no further inpatient workup indicated. Cardiology discontinue losartan and recommending patient follow-up in our office immediately at discharge for placement on event monitor for further workup for evaluation of possible need for pacemaker. Medically, patient stable at this time showing no signs of acute distress. Patient's at bedside and discussed discharge plans. Vital signs stable with blood pressure 127/77, heart rate 65, respiratory rate 16, temp 97.8F, SpO2 of 97% on room air. Patient discharged to cardiology office for event monitor and then EMS to take patient to [facility] for admission. Physical exam: Vital signs reviewed and stable. General: Nontoxic, no distress and appears stated age. Derm: Skin warm and dry, normal coloration for ethnicity. Head: Atraumatic, normocephalic and symmetric. Very hard of hearing. Eyes: EOMs intact, no lid lag, and anicteric sclera Mouth: no lip lesions, mucus membranes moist Cardiovascular: Bradycardic rate, regular rhythm with systolic murmur, positive posterior tibial pulses bilaterally, and cap refill < 2 seconds. Lungs: Respirations even, regular, and unlabored on room air. Lungs CTA bilatera lly, no rhonchi, no rales, no wheezing, and no accessory muscle usage. Abdominal: soft, nontender to palpation, no guarding, no appreciable organomegaly Ext: ROM intact. No gross muscle atrophy, no edema, no contractures Neuro: Speech clear, face symmetrical and CN II-XII grossly intact with no noted focal neuro deficits Psych: Alert and oriented to person only. Patient confused to place, time, and situation at baseline. Appropriate and pleasant affect. A total of 38 minutes of time were spent preparing this complex discharge summary. Pt was discharged on 06/09/23 at 10:50 AM Patient was seen independently by Nurse Practitioner. This document was prepared using [employer] dictation software. Please allow for errors in plasterer foreman while rare they do occur. Raymundo Alba NP rendered care for this patient independently, reviewed the findings and plan as documented in the note above. I did not physically speak with or examine the patient on this date. Patient Condition at Discharge: Stable Plan - Discharge Summary Discharge Rx Participant: No New Discharge Prescriptions: Continue Simvastatin [Zocor] 20 mg PO DAILY Donepezil [Aricept] 10 mg PO HS Aspirin 81 mg PO DAILY Memantine [Namenda] 5 mg PO BID Levothyroxine Sodium [Synthroid] 25 mcg PO DAILY Citalopram Hydrobromide [CeleXA] 40 mg PO DAILY Cyanocobalamin (Vitamin B-12) [Vitamin B-12] 1,000 mcg PO DAILY Discontinued Losartan Potassium 100 mg PO DAILY Loperamide [Imodium] 4 mg PO QID PRN PRN Reason: Diarrhea Discharge Medication List Aspirin 81 mg PO DAILY 05/07/15 [History] Donepezil [Aricept] 10 mg PO HS 05/07/15 [History] Simvastatin [Zocor] 20 mg PO DAILY 05/07/15 [History] Citalopram Hydrobromide [CeleXA] 40 mg PO DAILY 06/06/23 [History] Cyanocobalamin (Vitamin B-12) [Vitamin B-12] 1,000 mcg PO DAILY 06/06/23 [Histo ry] Levothyroxine Sodium [Synthroid] 25 mcg PO DAILY 06/06/23 [History] Memantine [Namenda] 5 mg PO BID 06/06/23 [History] Follow up Appointment(s)/Referral(s): Fransisco Shane MD [Primary Care Provider] - 1-2 Days Errol Thomas MD [Medical Doctor] - 1 Week Patient Instructions/Handouts: Syncope (DC), Bradycardia (DC) Activity/Diet/Wound Care/Special Instructions: PATIENT TO RECEIVE EVENT MONITOR FROM [facility] AFTER DISCHARGE. PATIENT TO [facility] AT THE OFFICE AFTER DISCHARGE Discharge Disposition: TRANSFER TO SNF/ECF
[2023-06-09 11:34] LABS: Glucose,Whole Blood 92 mg/dL (70-110)
--- NOTE | 2023-06-09 13:48 | P.CN ---
Psychiatric Consult - . Consult date: 06/09/23 Consult:: 06/09/23 13:47 IDENTIFYING DATA: This patient is a 73-year-old male with significant history of dementia who presented to the emergency department with concerns for a syncopal episode. HISTORY OF PRESENT ILLNESS: The patient presented to the hospital on 06/06/2023, brought into the emergency department after concerns of a syncopal episode. As per chart review, the patient is currently attends adult daycare where he attends [employer] twice weekly. The patient began trembling and shaking and became very unsteady with his feet and fell to the ground and hit his head. This is followed by loss of consciousness lasting for approximately 90 seconds. The patient was brought to the emergency department and was admitted medically for evaluation of his syncopal episode. EKG was completed showing atrial fibrillation with a slowed ventricular response at 44 bpm upon personal review and interpretation. CT brain also completed in radiology report reviewed stating nonspecific white matter changes likely secondary to chronic small vessel ischemic disease but negative for acute intracranial process. Chest x- ray completed and upon review lungs appear clear with radiology report stating negative for acute cardiopulmonary process. Neurology has been following the patient and during his examination on 06/08/2023, the patient was noted to be very confused, pacing around, and at times appeared to be agitated. Psychiatry was consulted for management of dementia with behavioral disturbance. Upon evaluation by the psychiatrist, the patient is currently calmly sleeping. He is arousable. However consistent with previously documented evaluations, he appears to be aphasic. He does not respond to any questioning. He is currently on a regimen of Aricept, Namenda, Celexa, and Seroquel. PAST PSYCHIATRIC HISTORY: Patient has a history of dementia. Patient is currently on a regimen of Celexa, Aricept, Namenda, and Seroquel. Seroquel was started here in this hospital. No reported history of previous psychiatric admissions as per chart review. PAST MEDICAL HISTORY: Past Medical History: Hyperlipidemia, Hypertension Additional Past Medical History / Comment(s): HX FORGETFULNESS-ON ARICEPT, RESTLESS LEG SYNDROME, HAD SLEEP STUDY RECENTLY-IN PROCESS OF GETTING C-PAP, LOOSE STOOL @ TIMES- SOMETIMES HARD TO CONTROL, ALSO HAVING SOME BELCHING, History of Any Multi-Drug Resistant Organisms: None Reported Past Surgical History: Bowel Resection, Cholecystectomy, Joint Replacement, Orth opedic Surgery Additional Past Surgical History / Comment(s): COLON RESECTION FOR ADENOMA, COLONOSCOPY, RT HIP REPLACEMENT, ARTHROSCOPIC GERMAN. KNEES, PIN IN LT SHOULDER @ AGE 16 Past Anesthesia/Blood Transfusion Reactions: No Reported Reaction Past Psychological History: No Psychological Hx Reported ALLERGIES: Allergies Allergy/AdvReac Type Severity Reaction Status Date / Time No Known Allergies Allergy Verified 06/06/23 14:57 CHEMICAL DEPENDENCY HISTORY: Smoking Status: Never smoker Past Alcohol Use History: Occasional Past Drug Use History: None Reported FAMILY PSYCHIATRIC/SUBSTANCE USE HISTORY: Unable to assess SOCIAL HISTORY: Patient is , retired, and attends adult daycare twice a week. MENTAL STATUS EXAM: General Appearance: Patient appears to be stated age is alert, pleasant, and cooperative. Patient appears to have fair hygiene and grooming wearing hospital gown with fair eye contact. Behavior: Patient is calmly lying in bed without any agitated behavior. Speech: Patient is nonverbal. Mood/Affect: Could not assess patient mood. Affect appears to be flat. Suicidality/Homicidality: Could not assess Perceptions: Could not assess Though content/process: Could not assess Memory and concentration: Could not assess. Grossly poor Judgment and insight: poor IMPRESSIONS: Syncopal episode Alzheimer's dementia with behavioral disturbances PLAN: -At this time patient DOES NOT meet criteria for inpatient psychiatric admission. The patient appears to have a safe and supportive care with redirection and/or reorientation and assistance as needed. -Agree with plan to use Seroquel in order to address dementia with behavioral disturbances -Would recommend the following medication changes/additions: As the patient is elderly, there is concern for cardiac arrhythmias with Celexa. The patient did have new onset atrial fibrillation with a slowed ventricular response. Recommending to decrease Celexa to 20 mg as per guidelines. -Continue 1:1 sitter for safety -Recommend outpatient follow-up -Psychiatry will sign off at this point, please contact with any questions. Vital Signs Temp 97.8 F 06/08/23 20:00 Pulse 65 06/09/23 00:00 Resp 16 06/09/23 00:00 BP 127/77 06/09/23 00:00 Pulse Ox 97 06/09/23 00:00 FiO2 21 06/08/23 01:03 Intake & Output 08/24/23 08/25/23 08/25/23 18:59 06:59 18:59 Intake Total 780 540 240 Balance 780 540 240 Intake: Oral 780 540 240 Other: Voiding Method Diaper Diaper Diaper Incontinent Incontinent Incontinent # Voids 2 2 Laboratory Results WBC 4.8 k/uL (3.8-10.6) 06/09/23 10:11 RBC 3.68 m/uL (4.30-5.90) L 06/09/23 10:11 Hgb 12.6 gm/dL (13.0-17.5) L 06/09/23 10:11 Hct 36.4 % (39.0-53.0) L 06/09/23 10:11 MCV 98.9 fL (80.0-100.0) 06/09/23 10:11 MCH 34.3 pg (25.0-35.0) 06/09/23 10:11 MCHC 34.7 g/dL (31.0-37.0) 06/09/23 10:11 RDW 12.2 % (11.5-15.5) 06/09/23 10:11 Plt Count 135 k/uL (150-450) L 06/09/23 10:11 MPV 7.3 06/09/23 10:11 Neutrophils % 57 % 06/07/23 04:02 Lymphocytes % 32 % 06/07/23 04:02 Monocytes % 6 % 06/07/23 04:02 Eosinophils % 3 % 06/07/23 04:02 Basophils % 0 % 06/07/23 04:02 Neutrophils # 2.9 k/uL (1.3-7.7) 06/07/23 04:02 Lymphocytes # 1.6 k/uL (1.0-4.8) 06/07/23 04:02 Monocytes # 0.3 k/uL (0-1.0) 06/07/23 04:02 Eosinophils # 0.1 k/uL (0-0.7) 06/07/23 04:02 Basophils # 0.0 k/uL (0-0.2) 06/07/23 04:02 PT 10.6 sec (9.0-12.0) 06/06/23 13:17 INR 1.0 (<1.2) 06/06/23 13:17 APTT 24.1 sec (22.0-30.0) 06/06/23 13:17 D-Dimer 0.53 mg/L FEU (<0.60) 06/06/23 13:17 Sodium 136 mmol/L (137-145) L 06/09/23 10:11 Potassium 4.1 mmol/L (3.5-5.1) 06/09/23 10:11 Chloride 105 mmol/L (98-107) 06/09/23 10:11 Carbon Dioxide 29 mmol/L (22-30) 06/09/23 10:11 Anion Gap 2 mmol/L 06/09/23 10:11 BUN 13 mg/dL (9-20) 06/09/23 10:11 Creatinine 0.68 mg/dL (0.66-1.25) 06/09/23 10:11 Est GFR (CKD-EPI)AfAm >90 (>60 ml/min/1.73 sqM) 06/09/23 10:11 Est GFR (CKD-EPI)NonAf >90 (>60 ml/min/1.73 sqM) 06/09/23 10:11 Glucose 92 mg/dL (74-99) 06/09/23 10:11 POC Glucose (mg/dL) 92 mg/dL (70-110) 06/09/23 11:33 POC Glu Assistant Foreman ID Asha Damian 06/09/23 11:[address] Glu mg/dL 111 mg/dL 06/06/23 16:22 Hemoglobin A1c 5.5 % (<=6.0) 06/06/23 16:22 Calcium 8.8 mg/dL (8.4-10.2) 06/09/23 10:11 Magnesium 2.3 mg/dL (1.6-2.3) 06/09/23 10:11 Total Bilirubin 1.7 mg/dL (0.2-1.3) H 06/09/23 10:11 AST 25 U/L (17-59) 06/09/23 10:11 ALT 19 U/L (4-49) 06/09/23 10:11 Alkaline Phosphatase 69 U/L (38-126) 06/09/23 10:11 Troponin I <0.012 ng/mL (0.000-0.034) 06/06/23 21:05 Total Protein 6.2 g/dL (6.3-8.2) L 06/09/23 10:11 Albumin 3.7 g/dL (3.5-5.0) 06/09/23 10:11 TSH 1.520 mIU/L (0.465-4.680) 06/06/23 13:17 Free T4 0.96 ng/dL (0.78-2.19) 06/06/23 13:17 Free T3 pg/mL 4.4 pg/ml (2.8-5.3) 06/06/23 13:17 06/09/23 13:48
[2023-06-09] MEDS ORDERED: MEMANTINE 10 MG TAB PO SCH (21:00)
[2023-06-10] MEDS ORDERED: CITALOPRAM HYDROBROMIDE 20 MG TAB PO SCH (09:00)
== END 2023-06-09 13:52 | DRG 315 ==
LOC: EC 12:14 → 3SCARD 15:18
PROVIDERS: ADMIT Student in an Organized Health Care Education/Training Program; ATTEND Student in an Organized Health Care Education/Training Program
DX: I95.9 Hypotension, unspecified (principal); F02.811 Dementia in other diseases classified elsewhere, unspecified severity, with agitation; R47.01 Aphasia; I48.92 Unspecified atrial flutter; D69.6 Thrombocytopenia, unspecified; G31.89 Other specified degenerative diseases of nervous system; G30.9 Alzheimer's disease, unspecified; I48.0 Paroxysmal atrial fibrillation; E88.09 Other disorders of plasma-protein metabolism, not elsewhere classified; D64.9 Anemia, unspecified; E03.9 Hypothyroidism, unspecified; I10 Essential (primary) hypertension; E78.5 Hyperlipidemia, unspecified; K52.9 Noninfective gastroenteritis and colitis, unspecified; E16.2 Hypoglycemia, unspecified; G25.81 Restless legs syndrome; R00.1 Bradycardia, unspecified; W19.XXXA Unspecified fall, initial encounter; Z96.641 Presence of right artificial hip joint; Z79.82 Long term (current) use of aspirin; Z86.010 Personal history of colon polyps; Z79.899 Other long term (current) drug therapy; Z79.890 Hormone replacement therapy
CPT/HCPCS: 36415; 70450; 71045; 80053; 83036; 83735; 84439; 84443; 84481; 84484; 85025; 85027; 85379; 85610; 85730; 93005; 93306; 94760; 96374; 96376; 99285

== ENCOUNTER 2023-10-22 13:32 | Emergency (ER) | payer MEDICARE ==
--- NOTE | 2023-10-22 14:06 | ED ---
General Adult HPI - General Chief complaint: Fall Stated complaint: Fall,Low back pain Time Seen by Provider: 10/22/23 13:51 Source: patient Mode of arrival: wheelchair Limitations: no limitations, altered mental status - History of Present Illness Initial comments: Dictation was produced using [employer] dictation software. please excuse any grammatical, word or spelling errors. Chief Complaint: 73-year-old male with dementia presents to emergency department after fall History of Present Illness: 73-year-old male with past medical history of dementia. Patient lives at [facility] [place] [facility]. He got his foot caught caused him to lean forward ultimately he ended up falling backwards landing on his bottom. Denies any head trauma. Patient is a poor historian secondary to dementia. provides history of present illness. Patient fell yesterday however he's been complaining of consistent back pain. re questing an x-ray of his back. This default he's been able to walk ambulate with minimal complications. The ROS documented in this emergency department record has been reviewed and confirmed by me. Those systems with pertinent positive or negative responses have been documented in the HPI. All other systems are other negative and/or noncontributory. - Related Data Home Medications Medication Instructions Recorded Confirmed Aspirin 81 mg PO DAILY 05/07/15 06/06/23 Donepezil [Aricept] 10 mg PO HS 05/07/15 06/06/23 Simvastatin [Zocor] 20 mg PO DAILY 05/07/15 06/06/23 Citalopram Hydrobromide [CeleXA] 40 mg PO DAILY 06/06/23 06/06/23 Cyanocobalamin (Vitamin B-12) 1,000 mcg PO DAILY 06/06/23 06/06/23 [Vitamin B-12] Levothyroxine Sodium [Synthroid] 25 mcg PO DAILY 06/06/23 06/06/23 Memantine [Namenda] 5 mg PO BID 06/06/23 06/06/23 Allergies Allergy/AdvReac Type Severity Reaction Status Date / Time No Known Allergies Allergy Verified 06/06/23 14:57 Review of Systems ROS Statement: Those systems with pertinent positive or pertinent negative responses have been documented in the HPI. ROS Other: All systems not noted in ROS Statement are negative. Past Medical History Past Medical History: Hyperlipidemia, Hypertension Additional Past Medical History / Comment(s): HX FORGETFULNESS-ON ARICEPT, RESTLESS LEG SYNDROME, HAD SLEEP STUDY RECENTLY-IN PROCESS OF GETTING C-PAP, LOOSE STOOL @ TIMES- SOMETIMES HARD TO CONTROL, ALSO HAVING SOME BELCHING, History of Any Multi-Drug Resistant Organisms: None Reported Past Surgical History: Bowel Resection, Cholecystectomy, Joint Replacement, Orthopedic Surgery Additional Past Surgical History / Comment(s): COLON RESECTION FOR ADENOMA, COLONOSCOPY, RT HIP REPLACEMENT, ARTHROSCOPIC GERMAN. KNEES, PIN IN LT SHOULDER @ AGE 16 Past Anesthesia/Blood Transfusion Reactions: No Reported Reaction Past Psychological History: No Psychological Hx Reported Smoking Status: Never smoker Past Alcohol Use History: None Reported, Occasional Past Drug Use History: None Reported - Past Family History Mother Family Medical History: Cancer, Diabetes Mellitus Additional Family Medical History / Comment(s): STOMACH CA Father Family Medical History: Skin Disorder Additional Family Medical History / Comment(s): SEVERE PSORIASIS General Exam - General Exam Comments Initial Comments: PHYSICAL EXAM: General Impression: Alert and oriented x2/4, not in acute distress HEENT: Normocephalic atraumatic, extra-ocular movements intact, pupils equal and reactive to light bilaterally, mucous membranes moist. Cardiovascular: Heart regular rate and rhythm Chest: Able to complete full sentences, no retractions, no tachypnea Abdomen: abdomen soft, non-tender, non-distended, no organomegaly Musculoskeletal: Pulses present and equal in all extremities, no peripheral edema Motor: no focal deficits noted Neurological: CN II-XII grossly intact, no focal motor or sensory deficits noted Skin: Intact with no visualized rashes Psych: Normal affect and mood Limitations: no limitations, altered mental status Course Vital Signs 10/22/23 13:48 Temperature 98.2 F Pulse Rate 65 Respiratory 20 Rate Blood Pressure 148/75 O2 Sat by Pulse 99 Oximetry Medical Decision Making - Medical Decision Making Was pt. sent in by a medical professional or institution (, PA, INFORMATION SYSTEMS SECURITY DEVELOPER, urgent care, hospital, or [facility]...) When possible be specific @ -No Did you speak to anyone other than the patient for history (EMS, parent, family, police, friend...)? What history was obtained from this source @ -No Did you review nursing and triage notes (agree or disagree)? Why? @ -I reviewed and agree with nursing and triage notes Were old charts reviewed (outside hosp., previous admission, EMS record, old EKG, old radiological studies, urgent care reports/EKG's, [facility] records)? Report findings @ -No old charts were reviewed Differential Diagnosis (chest pain, altered mental status, abdominal pain women, abdominal pain men, vaginal bleeding, musculoskeletal, weakness, fever, dyspnea, syncope, headache, dizziness, GI bleed, back pain, seizure, CVA, palpatations, mental health)? @ -Differential Back Pain: Strain, zoster, cauda equina syndrome, epidural abscess, vertebral osteomyel itis, discitis, fracture, subluxation, disc herniation, DJD, spinal stenosis, dissection, AAA, pancreatitis, peptic ulcer disease, pyelonephritis, kidney stone, this is not meant to be an all-inclusive list. EKG interpreted by me (3pts min.). @ -None done X-rays interpreted by me (1pt min.). @ -None done CT interpreted by me (1pt min.). @ -Computed tomography scan of the brain, lumbar spine and pelvis shows no acute traumatic injuries U/S interpreted by me (1pt. min.). @ -None done What testing was considered but not performed or refused? (CT, X-rays, U/S, labs)? Why? @ -None What meds were considered but not given or refused? Why? @ -None Did you discuss the management of the patient with other professionals (professionals i.e. , PA, INFORMATION SYSTEMS SECURITY DEVELOPER, lab, RT, psych nurse, social problems specialist, child care aide, teacher, mechanical engineering officer, case packer)? Give summary @ -No Was smoking cessation discussed for >3mins.? @ -No Was critical care preformed (if so, how long)? @ -No Were there social determinants of health that impacted care today? How? (Homele ssness, low income, unemployed, alcoholism, drug addiction, transportation, low edu. Level, literacy, decrease access to med. care, [facility], rehab)? @ -No Was there de-escalation of care discussed even if they declined (Discuss DNR or withdrawal of care, Hospice)? DNR status @ -No What co-morbidities impacted this encounter? (DM, HTN, Smoking, COPD, CAD, Cancer, CVA, ARF, Chemo, Hep., AIDS, mental health diagnosis, sleep apnea, morbid obesity)? @ -None Was patient admitted / discharged? Hospital course, mention meds given and route, prescriptions, significant lab abnormalities, going to OR and other pertinent info. @ -73-year-old demented, elderly male presents emergency Department with back pain after fall. Vital signs stable. Patient is well-appearing at bedside. CT imaging is negative for any acute traumatic processes to the brain pelvis or lumbar spine. Patient well-appearing at the bedside. Patient discharged Undiagnosed new problem with uncertain prognosis? @ -No Drug Therapy requiring intensive monitoring for toxicity (Heparin, Nitro, Insulin, Cardizem)? @ -No Were any procedures done? @ -No Diagnosis/symptom? Acute, or Chronic, or Acute on Chronic? Uncomplicated (without systemic symptoms) or Complicated (systemic symptoms)? @ -back strain Side effects of treatment? @ -No Exacerbation, Progression, or Severe Exacerbation? @ -No Poses a threat to life or bodily function? How? (Chest pain, [place], [place], pneumonia, PE, COPD, DKA, ARF, appy, cholecystitis, CVA, Diverticulitis, Homicidal, Suicidal, threat to staff... and all critical care pts) @ -No Disposition Clinical Impression: Back strain Disposition: HOME SELF-CARE Condition: Fair Instructions (If sedation given, give patient instructions): Fall Prevention for Older Adults (ED) Is patient prescribed a controlled substance at d/c from ED?: No Referrals: Fransisco Shane MD [Primary Care Provider] - 1-2 days Time of Disposition: 15:12
--- NOTE | 2023-10-22 14:55 | CT ---
EXAMINATION TYPE: CT lumbar spine wo con DATE OF EXAM: 10/22/2023 COMPARISON: None HISTORY: 73-year-old male pain after fall. TECHNIQUE: Contiguous axial scanning of the lumbar spine without IV contrast. Coronal and sagittal re constructions performed. CT DLP: 2044.9 combined mGycm Automated exposure control for dose reduction was used. FINDINGS: Partially visualized large right renal cortical cyst. Ectatic common iliac arteries, left dilated up to 2.6 cm and right measuring 1.8 cm. Degenerative bony ankylosis left SI joint. As osteopenia. Moderate multilevel disc disease, moderate to advanced in the upper lumbar spine. Hypertrophic facet arthropathy throughout. Degenerative grade 1 retrolisthesis L1-L2, L2-L3, and L3-L4. Grade 1 anterolisthesis L5-S1. There is excessive artifact limiting assessment of the spinal canal but we suspect at least moderate spinal canal stenosis at various levels. Vertebral body heights are preserved. On the left, moderate to severe neuroforaminal stenoses at L2-L3, L3-L4, and L4-L5. Moderate at L5-S1 and L1-L2. On the right, severe neuroforaminal stenosis L2-L3 and moderate at L1-L2, L3-L4. Mild to moderate L4- L5 and L5-S1. IMPRESSION: 1. MODERATE MULTILEVEL SPONDYLOTIC CHANGE IN THE LUMBAR SPINE. DEGENERATIVE GRADE 1 SPONDYLOLISTHESIS L1-L2, L2-L3, L3-L4, AND L5-S1. 2. NO VERTEBRAL COMPRESSION COLLAPSE. 3. EXCESSIVE ARTIFACT LIMITING DETAILED ASSESSMENT OF THE SPINAL CANAL. SUSPECT LEVELS OF AT LEAST MO DERATE SPINAL CANAL STENOSIS. 4. VARIABLE NEURAL FORAMINAL STENOSES OUTLINED ABOVE. 5. 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 APPROPRIATE VASCULAR SURGERY REFERRAL/FOLLOW-UP RECOMMENDED.
--- NOTE | 2023-10-22 14:59 | CT ---
EXAMINATION TYPE: CT pelvis wo con DATE OF EXAM: 10/22/2023 COMPARISON: None HISTORY: 73-year-old male pain after fall. TECHNIQUE: Contiguous axial scanning of the pelvis without IV contrast. Coronal and sagittal reconstr uctions performed. CT DLP: 2045.9 mGycm Automated exposure control for dose reduction was used. FINDINGS: Partially visualized small fat-containing ventral abdominal wall hernia near the umbilicus. Aneurysma l common iliac arteries reported separately and lumbar spine report. Moderate stool distal sigmoid an d rectum with a staple line related to prior resection and reanastomosis. Bladder urine distended. Degenerative bony ankylosis left SI joint. Moderate degenerative change right SI joint. Right hip total arthroplasty. No periprosthetic fracture or other complication of the orthopedic hard penny. Some heterotopic ossification noted about the greater tuberosity. There is at least moderate osteophytic change of the left hip with joint space narrowing and marginal spurring. Subchondral sclerosis and cystic changes also present. No hip joint effusion. Allowing for the degree of osteopenia, no acute fracture is seen. IMPRESSION: 1. MODERATE LEFT HIP OA. PREVIOUS RIGHT HIP TOTAL ARTHROPLASTY. DEGENERATIVE BONY ANKYLOSIS LEFT SI J OINT AND MODERATE OA RIGHT SI JOINT. 2. NO ACUTE FRACTURE IDENTIFIED. 3. ANEURYSMAL COMMON ILIAC ARTERIES REPORTED IN THE LUMBAR SPINE CT. REFER TO THAT REPORT FOR FURTHER DETAILS AND RECOMMENDATIONS.
--- NOTE | 2023-10-22 15:09 | CT ---
EXAMINATION TYPE: CT brain wo con DATE OF EXAM: 10/22/2023 COMPARISON: 06/06/2023 HISTORY: 73-year-old male pain after fall TECHNIQUE: Examination was done in axial plane without intravenous contrast. Coronal and sagittal r econstructions performed. CT DLP: 1271.4 mGycm Automated exposure control for dose reduction was used. FINDINGS: The exam is motion limited. Allowing for this limitation, there is no evidence of acute intracranial hemorrhage, acute ischemic changes, mass, mass-effect, or extra-axial fluid collection. There is no effacement of cerebral sulc i or basal subarachnoid cisterns. There is mild hydrocephalus, Waqar's ratio calculated at 0.33, similar to prior exam. There is no midline shift. Sutton-white matter distinction is preserved. Rightward nasal septal deviation. Left-sided kristian bullosa. Paranasal sinuses and mastoid air cells are pneumatized. The globes are intact. IMPRESSION: Motion limited exam. Mild ventriculomegaly likely due to central cerebral atrophy. Correlate to exclu de a component of NPH. Unchanged from 06/06/2023. Otherwise, no acute intracranial abnormality seen.
[2023-10-22] MEDS ORDERED: traMADol 50 MG STARTER PACK 3 TAB BTL PO STA (15:15)
[2023-10-22 16:00] VITALS: BP 142/74; PULSE 70; RESP 16; TEMP 98.3
== END 2023-10-22 15:45 | disposition home or self-care (01) ==
LOC: EC 13:32
DX: S39.012A Strain of muscle, fascia and tendon of lower back, initial encounter (principal); I10 Essential (primary) hypertension; E78.5 Hyperlipidemia, unspecified; F03.90 Unspecified dementia, unspecified severity, without behavioral disturbance, psychotic disturbance, mood disturbance, and anxiety; Z79.82 Long term (current) use of aspirin; Z79.899 Other long term (current) drug therapy; W18.30XA Fall on same level, unspecified, initial encounter
CPT/HCPCS: 70450; 72131; 72192; 99284

== ENCOUNTER → 2023-12-28 | Day surgery (SDC) | payer MEDICARE ==
[2023-12-25 10:00] VITALS: BMI 30.1
[~2023-12-28] MED LIST: HYDROmorphone 0.5 MG/0.5 ML SYRINGE IVP PRN; LIDOCAINE 1% (10MG/ML) FOR IV START INTRADERMA PRN; LIDOCAINE 1% INJ 10MG/ML (20 ML MDV) ONE; MIDAZOLAM 2 MG/2 ML VIAL IV PRN; ONDANSETRON 4 MG/2 ML VIAL IVP PRN; PROPOFOL 10 MG/ML 20 ML VIAL IV ONE; fentaNYL (PF) 50 MCG/ML 2 ML AMP ONE
[2023-12-28] MEDS: LACTATED RINGERS 1,000 ML IV SCH (08:44)
[2023-12-28] MEDS: FAMOTIDINE 20 MG/2 ML VIAL IV PRN (09:22)
[2023-12-28] MEDS: DEXAMETHASONE SOD PHOSPHATE 4 MG/ML 1 ML VIAL IV ONE (09:22)
[2023-12-28] MEDS: ONDANSETRON 4 MG/2 ML VIAL IVP ONE (09:22)
[2023-12-28 09:26] VITALS: TEMP 97.5
[2023-12-28] MEDS: LACTATED RINGERS 1,000 ML IV ONE (10:40)
[2023-12-28] MEDS: BUPIVACAINE (PF) 0.5% 30 ML VIAL SQ ONE (11:15)
[2023-12-28] MEDS: LIDOCAINE 1%-EPI 1:100,000 50 ML VIAL SQ ONE (11:15)
--- NOTE | 2023-12-28 12:22 | P.OP ---
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 All risks, benefits and alternative therapies were discussed in detail. Consent was obtained and all questions were answered Operative Findings: Frozen section had negative margins Description of Procedure: This patient was taken to the operative room placed in the supine position. IV sedation was administered and the patient was monitored throughout the entire case by the department of anesthesia with a functioning IV line in place. The left ear was sterilely prepped and draped in usual fashion and anesthetized with lidocaine and bupivacaine. We marked the specimen and with use of a 15 blade an incision was made surrounding this malignancy. We dissected the cancer from the ear this was noted to be in the cartilage of the ear so therefore the cartilage was removed with the posterior skin was intact. There was extension into the ear canal. We then sent the specimen for frozen section and all margins came back negative for tumor. We then harvested and appropriate amount of skin from the lower neck. We close the donor site in usual fashion and The skin and trimmed it and defatted the graft and placed it in the defect. We then utilized 50 rapid Vicryl and a cotton ball dressing utilizing a bolster dressing for placement of this graft. This was secured in usual fashion and the graft size was 6 x 4 cm. The patient tolerated this well. Dressings were applied and the patient was taken to postanesthesia recovery in excellent condition.
[2023-12-28 14:03] VITALS: BP 125/81; PULSE 68; RESP 17
== END | disposition home or self-care (01) ==
LOC: OR 08:30
PROVIDERS: ATTEND Otolaryngology
DX: C44.219 Basal cell carcinoma of skin of left ear and external auricular canal (principal); I10 Essential (primary) hypertension; E66.9 Obesity, unspecified; Z68.32 Body mass index [BMI] 32.0-32.9, adult; F03.90 Unspecified dementia, unspecified severity, without behavioral disturbance, psychotic disturbance, mood disturbance, and anxiety; E78.5 Hyperlipidemia, unspecified; G47.33 Obstructive sleep apnea (adult) (pediatric); Z79.01 Long term (current) use of anticoagulants; Z79.890 Hormone replacement therapy; Z79.899 Other long term (current) drug therapy
CPT/HCPCS: 88305; 88331; 11646; 15260; J1100; J2405; J2001; J3010; J3490; J2704; J0665